=== PATIENT | male | born 1960 | race Caucasian/White ===

== ENCOUNTER 2019-02-16 05:29 | Day surgery (SDC) | payer MEDICAID, SELFPAY ==
[2019-01-24 11:22] VITALS: BMI 27.1
[2019-02-16] VITALS (9 sets, daily range): BP systolic 123–158; BP diastolic 84–107; PULSE 50–54; RESP 14–18; TEMP 36.3–36.6; O2SAT 84–99; BMI 27.8
--- NOTE | 2019-02-16 06:11 | HP.PCM_ITS ---
Problem List (1) Personal history of colonic polyps Status: Acute History of Present Illness Date of Admission: 02/16/19 The patient is a 58 year old M who presents today for screening colonoscopy. He believes that his most recent one was 9 years ago. He states that the colonos copy had prior to that he think he had some colon polyps. He has not had any bright red blood per rectum or melena. He has had some intermittent diarrhea but he attributes that to drinking alcohol. Denies any unexpected weight loss. He is also a cigarette smoker and notes some dyspnea on exertion. He denies any history of deep venous thrombosis. He has not had any recent hospitalizations. Past Medical History Past Medical History (Chronic Problems): Chronic Problems (Last Updated 01/24/19 @ 11:07 by Aaliyah Barreto) Smoker (Chronic) Personal history of skin cancer (Chronic) Actinic cheilitis (Chronic) left lower lip Actinic keratosis (Chronic) scattered actinic damage bilateral baptist areas and forehead area Neoplasm of skin of scalp (Chronic) 11 mm lesion top of scalp 1 cm cystic lesion right temporal scalp Neoplasm of skin of nose (Chronic) 6 mm lesion nasal dorsum Neoplasm of skin of forearm (Chronic) 11 mm lesion dorsal aspect distal right forearm Medical History: Medical History (Last Updated 01/24/19 @ 11:07 by Aaliyah Barreto) Back problem M53.9 Bone fracture T14.8XXA High cholesterol E78.00 Rheumatoid arthritis M06.9 Seasonal allergies J30.2 Skin cancer C44.90 High blood pressure I10 Allergies No Known Allergies Allergy (Unverified 02/16/19 05:48) Home Medications: Ambulatory Orders Medication Instructions Recorded amlodipine 5 mg tablet 5 mg PO DAILY 01/24/19 atenolol 50 mg tablet 50 mg PO DAILY 01/24/19 cyanocobalamin (vit B-12) 500 mcg 500 mcg PO DAILY 01/24/19 tablet nicotine 1 patch TRANSDERMAL Q24H 01/24/19 21mg/24hr-14mg/24hr-7mg/24hr daily transderm patch,sequential rosuvastatin 5 mg tablet 5 mg PO MOWEFR tab 01/24/19 umeclidinium 62.5 mcg/actuation 1 inh INHALATION Q24H 01/24/19 blister powder for inhalation vitamin D3 3,775 unit-folic acid 1 1 cap PO DAILY 01/24/19 mg tablet Albuterol IH (ProAir) [Proair Hfa 1 - 2 puff INHALATION Q4H PRN PRN 02/13/19 (SP)Vent Pts] Surgical History: Surgical History (Last Updated 01/24/19 @ 11:10 by Aaliyah Barreto) History of bone graft Z98.890 BROKEN FIBULA AND TIBULA - BONE GRAFT FROM HIP TO LEFT LEG Smoking Status: Former smoker Review of Systems Constitutional: Denies: Weight Change HEENT: Denies: Difficulty Swallowing Cardiovascular: Denies: Chest Pain Respiratory: Reports: Shortness of Breath Gastrointestinal: Reports: Diarrhea. Denies: Abdominal Pain Genitourinary: Denies: Dysuria Neurological: Denies: Balance problems Endocrine: Denies: Change in Body Habitus VTE Information - Inpt Only VTE Present on Admission: No Patient Problems: Active and Suspected Problems (Last Updated 01/24/19 @ 11:07 by Aaliyah Barreto) Personal history of colonic polyps (Acute) - Physical Exam General: Alert, Oriented x3, Cooperative HEENT: - - Erythematous face Oral: Moist Mucosa Neck: Supple Lungs: Clear to auscultation, - - Increased anterior posterior diameter slightly diminished respiratory excursion Cardiovascular: Regular rate, Regular Rhythm Abdomen: Bowel Sounds Present, Soft, Non Tender, Non-Distended Extremities: No Calf Tenderness Psych/Mental Status: Normal Affect Vital Signs Temp Pulse Resp BP Pulse Ox 97.3 F L 52 L 18 144/98 H 98 02/16/19 05:49 02/16/19 05:49 02/16/19 05:49 02/16/19 05:49 02/16/19 05:49 Oxygen Delivery Method Room Air Weight: 172 lb 3.121 oz Body Mass Index (BMI) 27.8 Assessment/Plan All Active Problems (Last Updated 01/24/19 @ 11:07 by Aaliyah Barreto) Personal history of colonic polyps (Acute) 58-year-old gentleman who states he has had a remote history of colon polyps. Some intermittent diarrhea possibly related to alcohol intake. He does not appear to be in acute distress. He presents via our open access program today. I have discussed the technique, benefits, risks, alternatives. He has had an opportunity to ask and have questions answered. We will proceed as noted. He states he has not had any difficulty on his previous endoscopies. Teja Munoz M.D., F.A.C.S.
--- NOTE | 2019-02-16 06:30 | COLBX_PTH ---
PATIENT: DOMINGA DOMINIQUE LOC: EN U#:[id number] AGE/SX: 58/M ROOM: RE02/16/[address]: Dr. Teja Munoz MD : 1960 BED: DIS: 02/16/2019 SPEC #: [id number] RECD: 02/16/19 08:49 STATUS: AMANDA RICHARD #: [id number] MORTEZA: 02/16/19 06:[address]: Teja Munoz DEPT: SURGICAL PATHOLOGY RECD BY: José Luis Lowry ENTERED: 02/16/19 09:41 SP TYPE: COLON BX OTHR DR: Dr. Slade Solis MD Tissues: A - Cecum, NOS B - COLON BIOPSY Procedures: Surgery Specimen Level IV HEADER OPERATION: Colonoscopy - open access (MOD) PRE-OP DIAGNOSIS: Screening colonoscopy TISSUE SUBMITTED: A - Cecal polyp biopsy, B - Random colon biopsies MICROSCOPIC DIAGNOSIS A. Cecal polyp, biopsy: Tubular adenoma. B. Colon, random biopsy: Fragments of colonic mucosa, no pathologic diagnosis. ZEESHAN:mickie 02/19/19 MICROSCOPIC DESCRIPTION Slides are reviewed. GROSS DESCRIPTION A - Received in fixative is one container labeled with the patient's name and designated cecal polyp biopsy. The specimen consists of multiple irregular fragments of light marcus soft tissue that in aggregate measure 0.8 x 0.2 x 0.1 cm. The specimen is totally submitted in one cassette. B - Received in fixative is one container labeled with the patient's name and designated random colon biopsy. The specimen consists of multiple irregular fragments of light marcus soft tissue that in aggregate measure 1 x 0.3 x 0.1 cm. The specimen is totally submitted in one cassette. / ZEESHAN:mickie 02/16/19 TC:1 CPT: 53054 x2
--- NOTE | 2019-02-16 06:47 | OP.ENDO_ITS ---
02/16/2019 Slade Solis Re : Colonoscopy procedure for Maico Woo Dear Irma This procedure was performed on Saturday, February 16, 2019. My impressions and recommendations are as follows: Impressions : - Hemorrhoids found on perianal exam. - Diverticulosis in the entire examined colon. - One 4 mm polyp in the cecum at the appendicele orifice, removed with a cold biopsy forceps. Resected and retrieved. Recommendations : - Await pathology results. - Repeat colonoscopy in 5 years for surveillance. - Telephone my office for pathology results in 1 week. - Discharge patient to home. - Resume previous diet. - Continue present medications. My findings are described in the full procedure note, which is enclosed. If I can be of further assistance, please feel free to contact me at Doctor phone number(s): Work: . Sincerely, Teja Munoz MD 02/16/2019 6:46:42 AM This report has been signed electronically.
== END 2019-02-16 07:38 | disposition home or self-care (01) ==
LOC: EN 05:30 → AC 05:31
PROVIDERS: Family Provider Family Medicine; PCP Family Medicine; Referring Provider Surgery; Visit Provider Surgery
PROC: 0DJD8ZZ Inspection of Lower Intestinal Tract, Via Natural or Artificial Opening Endoscopic (ICD-10-PCS; CPT 45378; principal; 2019-02-16 06:25)
DX: Z12.11 Encounter for screening for malignant neoplasm of colon (principal); D12.0 Benign neoplasm of cecum; K64.9 Unspecified hemorrhoids; K57.30 Diverticulosis of large intestine without perforation or abscess without bleeding; Z86.010 Personal history of colon polyps; E78.00 Pure hypercholesterolemia, unspecified; M06.9 Rheumatoid arthritis, unspecified; I10 Essential (primary) hypertension; Z85.828 Personal history of other malignant neoplasm of skin; Z79.899 Other long term (current) drug therapy; F17.210 Nicotine dependence, cigarettes, uncomplicated
CPT/HCPCS: 45380; 88305; 99152; 99153; J7120

== ENCOUNTER 2019-03-01 06:18 | Day surgery (SDC) | payer MEDICAID, SELFPAY ==
[2019-01-24 11:22] VITALS: BMI 27.1
[2019-02-16 05:49] VITALS: BMI 27.8
--- NOTE | 2019-02-28 19:42 | PCM.HP.BLA ---
History and Physical Date of Admission: 03/01/19 HISTORY OF PRESENT ILLNESS 58 year old man presents for evaluation for TBSE. He has had previous skin cancers excised in the past. He has concerns about lesions on his dorsal aspect distal right forearm, nasal dorsum, top of scalp that have increased in size over the last several months and have developed irregular borders with some scabbing. He also has scattered areas of actinic damage on his bilateral pentecostalism areas, forehead, and left lower lip. He has also noticed a cystic lesion on his right temporal scalp that he has had for several years. He denies fever. He denies trauma. He denies drainage or bleeding or recent infection. He presents at this time for further evaluation and treatment. PAST MEDICAL HISTORY Back problem Bone fracture High cholesterol Rheumatoid arthritis Skin cancer High blood pressure PAST SURGICAL HISTORY bone graft ALLERGIES No Known Allergies MEDICATIONS bisacodyl polyethylene glycol amlodipine atenolol cyanocobalamin (vit B-12) nicotine transderm patch rosuvastatin umeclidinium vitamin D3-folic acid imiquimod FAMILY HISTORY Sister - Breast cancer SOCIAL HISTORY Smoking Status: Current every day smoker counseling given: provider counseling alcohol intake: current substance use type: does not use REVIEW OF SYSTEMS General - Denies fever and weight loss. Has fatigue. Eyes - Denies cataracts and glaucoma. ENT - Denies nasal congestion. Has sore throat. Endocrine - Has excessive thirst and urination. Skin - Has had skin cancer excised in the past. Has enlarging lesions nasal dorsum, top of scalp, and dorsal aspect distal right forearm. Has a cystic lesion right temporal scalp. Has actinic damage bilateral pentecostalism areas and forehead area. Has actinic cheilitis left lower lip. Musculoskeletal - Has joint pain, joint stiffness, weakness of muscles and joints, back pain. Denies arthritis. Neuro - Denies headaches. Cardiovascular - Denies chest pain, fatigue, and shortness of breath with exertion. Psych - Denies anxiety and depression. Respiratory - Has chronic cough and shortness of breath. Has sleep apnea. Gastrointestinal - Denies nausea, vomiting, and constipation. Has diarrhea. Hematologic - Denies abnormal bruising and bleeding. Genitourinary - Denies hematuria. Has urinary frequency. PHYSICAL EXAMINATION General - Alert and Oriented. HEENT - PERRL. EOMI. Throat is clear. On his nasal dorsum is a 6 mm lesion with irregular borders. Slightly raised in configuration. Some scabbing. No ulceration. Lesion is nontender. On the top of scalp is an 11 mm lesion with scabbing and irregular borders. Slightly raised in configuration. No ulceration. Lesion is nontender. On the right temporal scalp is a cystic lesion that is mobile. Measures 1 cm. Raised in configuration. No alopecia noted. No ulceration. Lesion is nontender. Has scattered actinic damage on his bilateral pentecostalism areas and forehead area. On the left lower lip is a dry scabby lesion that measures 5 mm. Looks actinic in nature. No ulceration. Lesion is nontender. Neck - Supple and nontender. No cervical adenopathy. No suspicious lesions noted. Lungs - Clear to auscultation. Heart - Regular rate and rhythm. Abdomen - Soft and nondistended. Extremities - FROM. No axillary adenopathy. Radial pulses are palpable. On the dorsal aspect distal right forearm by the wrist is a lesion that measures 11 mm. It is a crusty lesion and is nodular. Has irregular borders. No ulceration. Lesion is nontender. Patient is right hand dominant. Neuro - CN II-XII grossly intact. Psych - Normal mood and affect. ASSESSMENT 1. 11 mm lesion dorsal aspect distal right forearm. 2. 6 mm lesion nasal dorsum. 3. 11 mm lesion top of scalp. 4. 1 cm cystic lesion right temporal scalp. 5. Scattered actinic damage bilateral pentecostalism areas and forehead area. 6. Actinic cheilitis left lower lip. 7. Personal history of skin cancer. 8. Smoker. PLAN Recommend excision lesions dorsal aspect distal right forearm by the wrist, nasal dorsum, and top of scalp and send them to Pathology for analysis to rule out carcinoma. If carcinoma is present, then further excision will be necessary with skin graft or skin flap reconstruction. The cystic lesion right temporal scalp appears stable and is asymptomatic. Can observe at this time. Appears benign. If it changes in the future, will re-evaluate for excision and send to Pathology for analysis to rule out carcinoma. He has scattered actinic damage on his bilateral pentecostalism areas and forehead area and left lower lip. Recommend the use of Aldara cream to see if healing can occur. Will apply Aldara to affected areas daily at night 5 days per week for 6 weeks. Would then re-evaluate these areas in 2 months. Will send script to his Pharmacy. Surgery can be done on an outpatient basis under general anesthesia. Patient was informed of the risks and complications of the procedure including alternatives to surgery. These were discussed with the patient personally. Patient voices understanding and wishes to proceed. Some of the risks and complications were included in a form from the [employer] [employer]. Encouraged patient to stop smoking as it may have deleterious effects on wound healing.
--- NOTE | 2019-02-28 19:51 | HP.PCM_ITS ---
History and Physical Date of Admission: 03/01/19 HISTORY OF PRESENT ILLNESS 58 year old man presents for evaluation for TBSE. He has had previous skin cancers excised in the past. He has concerns about lesions on his dorsal aspect distal right forearm, nasal dorsum, top of scalp that have increased in size over the last several months and have developed irregular borders with some scabbing. He also has scattered areas of actinic damage on his bilateral evangelical areas, forehead, and left lower lip. He has also noticed a cystic lesion on his right temporal scalp that he has had for several years. He denies fever. He denies trauma. He denies drainage or bleeding or recent infection. He presents at this time for further evaluation and treatment. PAST MEDICAL HISTORY Back problem Bone fracture High cholesterol Rheumatoid arthritis Skin cancer High blood pressure PAST SURGICAL HISTORY bone graft ALLERGIES No Known Allergies MEDICATIONS bisacodyl polyethylene glycol amlodipine atenolol cyanocobalamin (vit B-12) nicotine transderm patch rosuvastatin umeclidinium vitamin D3-folic acid imiquimod FAMILY HISTORY Sister - Breast cancer SOCIAL HISTORY Smoking Status: Current every day smoker counseling given: provider counseling alcohol intake: current substance use type: does not use REVIEW OF SYSTEMS General - Denies fever and weight loss. Has fatigue. Eyes - Denies cataracts and glaucoma. ENT - Denies nasal congestion. Has sore throat. Endocrine - Has excessive thirst and urination. Skin - Has had skin cancer excised in the past. Has enlarging lesions nasal dorsum, top of scalp, and dorsal aspect distal right forearm. Has a cystic lesion right temporal scalp. Has actinic damage bilateral evangelical areas and forehead area. Has actinic cheilitis left lower lip. Musculoskeletal - Has joint pain, joint stiffness, weakness of muscles and joints, back pain. Denies arthritis. Neuro - Denies headaches. Cardiovascular - Denies chest pain, fatigue, and shortness of breath with exertion. Psych - Denies anxiety and depression. Respiratory - Has chronic cough and shortness of breath. Has sleep apnea. Gastrointestinal - Denies nausea, vomiting, and constipation. Has diarrhea. Hematologic - Denies abnormal bruising and bleeding. Genitourinary - Denies hematuria. Has urinary frequency. PHYSICAL EXAMINATION General - Alert and Oriented. HEENT - PERRL. EOMI. Throat is clear. On his nasal dorsum is a 6 mm lesion with irregular borders. Slightly raised in configuration. Some scabbing. No ulceration. Lesion is nontender. On the top of scalp is an 11 mm lesion with scabbing and irregular borders. Slightly raised in configuration. No ulceration. Lesion is nontender. On the right temporal scalp is a cystic lesion that is mobile. Measures 1 cm. Raised in configuration. No alopecia noted. No ulceration. Lesion is nontender. Has scattered actinic damage on his bilateral evangelical areas and forehead area. On the left lower lip is a dry scabby lesion that measures 5 mm. Looks actinic in nature. No ulceration. Lesion is nontender. Neck - Supple and nontender. No cervical adenopathy. No suspicious lesions noted. Lungs - Clear to auscultation. Heart - Regular rate and rhythm. Abdomen - Soft and nondistended. Extremities - FROM. No axillary adenopathy. Radial pulses are palpable. On the dorsal aspect distal right forearm by the wrist is a lesion that measures 11 mm. It is a crusty lesion and is nodular. Has irregular borders. No ulceration. Lesion is nontender. Patient is right hand dominant. Neuro - CN II-XII grossly intact. Psych - Normal mood and affect. ASSESSMENT 1. 11 mm lesion dorsal aspect distal right forearm. 2. 6 mm lesion nasal dorsum. 3. 11 mm lesion top of scalp. 4. 1 cm cystic lesion right temporal scalp. 5. Scattered actinic damage bilateral evangelical areas and forehead area. 6. Actinic cheilitis left lower lip. 7. Personal history of skin cancer. 8. Smoker. PLAN Recommend excision lesions dorsal aspect distal right forearm by the wrist, nasal dorsum, and top of scalp and send them to Pathology for analysis to rule out carcinoma. If carcinoma is present, then further excision will be necessary with skin graft or skin flap reconstruction. The cystic lesion right temporal scalp appears stable and is asymptomatic. Can observe at this time. Appears benign. If it changes in the future, will re- evaluate for excision and send to Pathology for analysis to rule out carcinoma. He has scattered actinic damage on his bilateral evangelical areas and forehead area and left lower lip. Recommend the use of Aldara cream to see if healing can occur. Will apply Aldara to affected areas daily at night 5 days per week for 6 weeks. Would then re-evaluate these areas in 2 months. Will send script to his Pharmacy. Surgery can be done on an outpatient basis under general anesthesia. Patient was informed of the risks and complications of the procedure including alternatives to surgery. These were discussed with the patient personally. Patient voices understanding and wishes to proceed. Some of the risks and complications were included in a form from the [employer]. Encouraged patient to stop smoking as it may have deleterious effects on wound healing.
--- NOTE | 2019-03-01 | LES_PTH ---
PATIENT: DOMINGA DOMINIQUE LOC: [facility] [place] U#:[id number] AGE/SX: 58/M ROOM: RE03/01/[address]: Dr. Jhoan Burkett MD : 1960 BED: DIS: 03/01/2019 SPEC #: [id number] RECD: 03/01/19 08:43 STATUS: AMANDA RENell #: [id number] MORTEZA: 03/01/19 00:[address]: Jhoan Burkett DEPT: SURGICAL PATHOLOGY RECD BY: Violeta Thakur ENTERED: 03/01/19 09:47 SP TYPE: Lesion OTHR DR: Dr. Slade Solis MD Tissues: A - Skin of forearm, NOS B - Skin of nose, NOS C - Skin of scalp, NOS Procedures: Frozen Section (charge) Surgery Specimen Level IV HEADER OPERATION: Excision lesions, distal dorsal right forearm, nasal dorsum, top of scalp PRE-OP DIAGNOSIS: 11 mm lesion dorsal aspect distal right forearm; 6 mm lesion nasal dorsum; 1 mm lesion top of scalp TISSUE SUBMITTED: A - Lesion right forearm, B - Lesion nasal dorsum, C - Lesion top of scalp FROZEN SECTION DIAGNOSIS A. Skin lesion, right forearm, shave biopsy: Actinic change and solar elastosis. B. Nasal dorsum skin lesion, shave biopsy: Actinic change and solar elastosis. C. Skin lesion, top of scalp, shave biopsy: Actinic change and solar elastosis. AM:mickie 03/01/19 MICROSCOPIC DIAGNOSIS A. Skin lesion of right forearm, shave biopsy: Actinic change and solar elastosis. B. Skin lesion, nasal dorsum, shave biopsy: Actinic change and solar elastosis. C. Skin lesion, top of scalp, shave biopsy: Actinic change and solar elastosis. Demodex folliculorum. AM:mickie 03/02/19 MICROSCOPIC DESCRIPTION Slides are reviewed. GROSS DESCRIPTION A - Received fresh for frozen section consultation labeled with the patient's name is a specimen designated lesion right forearm. The specimen consists of a shave biopsy of skin measuring 1.5 cm in diameter and <0.1 cm in thickness. The specimen is inked, bisected and totally submitted for frozen section consultation. B - Received fresh for frozen section consultation labeled with the patient's name is a specimen designated lesion nasal dorsum. The specimen consists of a shave biopsy of skin measuring 0.5 x 0.3 x <0.1 cm. The specimen is inked and totally submitted in one block for frozen section consultation. C - Received fresh for frozen section consultation labeled with the patient's name is a specimen designated lesion top of scalp. The specimen consists of a shave biopsy of skin measuring 1.5 x 1 x 0.1 cm. The specimen is inked, bisected and totally submitted in one block for frozen section consultation. / AM:mickie 03/01/19 TC:5 CPT: 40152 x3
[2019-03-01 06:49] VITALS: BP 148/89; PULSE 48; RESP 16; TEMP 36.4; O2SAT 97; BMI 28.3
[2019-03-01] MEDS: Silver Nitrate (BKC) 1 EACH (09:05)
[2019-03-01] MEDS: Mupirocin Ointment 22gm Tube 1 APPLIC (09:05)
--- NOTE | 2019-03-01 09:10 | PCM.OPRPT ---
Report of Operation Date of Procedure: 03/01/19 Pre-Operative Diagnosis: 1. 11 mm lesion dorsal aspect distal right forearm. 2. 6 mm lesion nasal dorsum. 3. 11 mm lesion top of scalp. 4. Personal history of skin cancer. 5. Smoker. Post-Operative Diagnosis: 1. 11 mm actinic keratosis dorsal aspect distal right forearm. 2. 6 mm actinic keratosis nasal dorsum. 3. 11 mm actinic keratosis top of scalp. 4. Personal history of skin cancer. 5. Smoker. Surgery/Procedure Performed:: 1. Intradermal excision 11 mm actinic keratosis dorsal aspect distal right forearm. 2. Intradermal excision 6 mm actinic keratosis nasal dorsum. 3. Intradermal excision 11 mm actinic keratosis top of scalp. Description of Surgical Findings:: 58 year old man presents for evaluation for TBSE. He has had previous skin cancers excised in the past. He has concerns about lesions on his dorsal aspect distal right forearm, nasal dorsum, top of scalp that have increased in size over the last several months and have developed irregular borders with some scabbing. He also has scattered areas of actinic damage on his bilateral denominational areas, forehead, and left lower lip. He has also noticed a cystic lesion on his right temporal scalp that he has had for several years. He denies fever. He denies trauma. He denies drainage or bleeding or recent infection. Patient was informed of the risks and complications of the procedure including alternatives to surgery. These were discussed with the patient personally. Patient voices understanding and wishes to proceed. Some of the risks and complications were included in a form from the [employer]. Encouraged patient to stop smoking as it may have deleterious effects on wound healing. Frozen section dorsal aspect distal right forearm - actinic keratosis and no carcinoma seen. Frozen section nasal dorsum - actinic keratosis and no carcinoma seen. Frozen section top of scalp - actinic keratosis and no carcinoma seen. commissary agent: Lena Navarro. Type of Anesthesia:: General Specimen's removed: 1. Lesion dorsal aspect distal right forearm to Pathology as a frozen section. 2. Lesion nasal dorsum to Pathology as a frozen section. 3. Lesion top of scalp to Pathology as a frozen section. Drains: None. Estimated Blood Loss (mL): 2 ml. Description of Procedure: Patient was taken to OR in supine position and was placed under general anesthesia. The face and scalp and neck and right forearm areas were prepped and draped in the usual fashion. SCD's were placed for DVT prophylaxis. Perioperative antibiotics were given intravenously. Using xylocaine with epinephrine, the lesions nasal dorsum, top of scalp, and dorsal aspect distal right forearm were infiltrated. After waiting 5 minutes for the anesthetic to take effect, I excised these three lesions (nasal dorsum, top of scalp, and dorsal aspect distal right forearm) in an intradermal fashion. They were sent separately to Pathology as a frozen section. Frozen section showed all three lesions (nasal dorsum, top of scalp, and dorsal aspect distal right forearm) were actinic keratoses and no carcinoma seen. No further surgery will be done today. It was discussed with the patient preoperatively that if actinic keratoses were present he would want to treat the lesions further with Aldara. So hemostasis was obtained with silver nitrate chemical cauterization. Antibiotic ointment was applied followed by band-aid dressing. Patient tolerated the procedure well and was sent to PACU in satisfactory condition. Patient will be sent home on antibiotics and pain medication. Patient will followup in a week for a wound check and for discussion of the pathology report. Once the silver nitrate chemical cauterization scabs have come off, we will start the Aldara cream. It is to be applied daily at night 5 days per week for 6 weeks then be re-evaluated in 2 months. Grafts/Implants Used: None. - Complications None. - Admit VTE Documentation VTE Present on Admission: No VTE Mechan Device Prophylaxis: SCD's VTE Pharm Prophylaxis ordered?: No Code Visit Surgery Charges CPT - 09304 ICD-10 - L57.0, Z85.828, F17.200 14556 L57.0, Z85.828, F17.200 83042 L57.0, Z85.828, F17.200
--- NOTE | 2019-03-01 09:13 | OP.PCM_ITS ---
Report of Operation Date of Procedure: 03/01/19 Pre-Operative Diagnosis: 1. 11 mm lesion dorsal aspect distal right forearm. 2. 6 mm lesion nasal dorsum. 3. 11 mm lesion top of scalp. 4. Personal history of skin cancer. 5. Smoker. Post-Operative Diagnosis: 1. 11 mm actinic keratosis dorsal aspect distal right forearm. 2. 6 mm actinic keratosis nasal dorsum. 3. 11 mm actinic keratosis top of scalp. 4. Personal history of skin cancer. 5. Smoker. Surgery/Procedure Performed:: 1. Intradermal excision 11 mm actinic keratosis dorsal aspect distal right forearm. 2. Intradermal excision 6 mm actinic keratosis nasal dorsum. 3. Intradermal excision 11 mm actinic keratosis top of scalp. Description of Surgical Findings:: 58 year old man presents for evaluation for TBSE. He has had previous skin cancers excised in the past. He has concerns about lesions on his dorsal aspect distal right forearm, nasal dorsum, top of scalp that have increased in size over the last several months and have developed irregular borders with some scabbing. He also has scattered areas of actinic damage on his bilateral pentecostal areas, forehead, and left lower lip. He has also noticed a cystic lesion on his right temporal scalp that he has had for several years. He denies fever. He denies trauma. He denies drainage or bleeding or recent infection. Patient was informed of the risks and complications of the procedure including alternatives to surgery. These were discussed with the patient personally. Patient voices understanding and wishes to proceed. Some of the risks and complications were included in a form from the [employer]. Encouraged patient to stop smoking as it may have deleterious effects on wound healing. Frozen section dorsal aspect distal right forearm - actinic keratosis and no carcinoma seen. Frozen section nasal dorsum - actinic keratosis and no carcinoma seen. Frozen section top of scalp - actinic keratosis and no carcinoma seen. 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 Type of Anesthesia:: General Specimen's removed: 1. Lesion dorsal aspect distal right forearm to Pathology as a frozen section. 2. Lesion nasal dorsum to Pathology as a frozen section. 3. Lesion top of scalp to Pathology as a frozen section. Drains: None. Estimated Blood Loss (mL): 2 ml. Description of Procedure: Patient was taken to OR in supine position and was placed under general anesthesia. The face and scalp and neck and right forearm areas were prepped and draped in the usual fashion. SCD's were placed for DVT prophylaxis. Perioperative antibiotics were given intravenously. Using xylocaine with epinephrine, the lesions nasal dorsum, top of scalp, and dorsal aspect distal right forearm were infiltrated. After waiting 5 minutes for the anesthetic to take effect, I excised these three lesions (nasal dorsum, top of scalp, and dorsal aspect distal right forearm) in an intradermal fashion. They were sent separately to Pathology as a frozen section. Frozen section showed all three lesions (nasal dorsum, top of scalp, and dorsal aspect distal right forearm) were actinic keratoses and no carcinoma seen. No further surgery will be done today. It was discussed with the patient preoperatively that if actinic keratoses were present he would want to treat the lesions further with Aldara. So hemostasis was obtained with silver nitrate chemical cauterization. Antibiotic ointment was applied followed by band-aid dressing. Patient tolerated the procedure well and was sent to PACU in satisfactory condition. Patient will be sent home on antibiotics and pain medication. Patient will followup in a week for a wound check and for discussion of the pathology report. Once the silver nitrate chemical cauterization scabs have come off, we will start the Aldara cream. It is to be applied daily at night 5 days per week for 6 weeks then be re-evaluated in 2 months. Grafts/Implants Used: None. - Complications None. - Admit VTE Documentation VTE Present on Admission: No VTE Mechan Device Prophylaxis: SCD's VTE Pharm Prophylaxis ordered?: No Code Visit Surgery Charges CPT - 66171 ICD-10 - L57.0, Z85.828, F17.200 44043 L57.0, Z85.828, F17.200 82951 L57.0, Z85.828, F17.200
[2019-03-01 09:20] VITALS: BP 107/69; BP 149/89; PULSE 57; RESP 16; TEMP 36.1; O2SAT 92
--- NOTE | 2019-03-01 09:24 | DCINST_ITS ---
You will use the following diet at home:: No restrictions Discharge Activity: Return to Normal Activity May shower in (days): 2 May resume sexual activity in: No Restrictions Ice area for (Minutes): 5 - as needed for swelling. Weight Bearing Status: Weight bearing as tolerated Call your doctor if your incision/area has: Continuous Slow Oozing, Sudden Increased Bleeding, Increased Pain/ Swelling, Increased Redness, Foul Smelling Discharge, Swelling at the incision site Call your doctor if you observe: Fever of 101 or Higher, Coldness, Increased Pain, Shortness of breath, Chest pain, Calf discomfort, Uncontrolled pain Suture Line Care: - - apply antibiotic ointment to wounds daily. Cleanse incision/area with: - - may get wounds wet in the shower in two days. Allergies/Adverse Reactions: Allergies No Known Allergies Allergy (Unverified 02/22/19 10:05) Medications to take at Discharge amlodipine 5 mg tablet 5 mg PO QHS 01/24/19 atenolol 50 mg tablet 50 mg PO QHS 01/24/19 cyanocobalamin (vit B-12) 500 mcg tablet 500 mcg PO DAILY 01/24/19 nicotine 21mg/24hr-14mg/24hr-7mg/24hr daily transderm patch,sequential 1 patch TRANSDERMAL Q24H 01/24/19 rosuvastatin 5 mg tablet 5 mg PO MOWEFR tab 01/24/19 Albuterol IH (ProAir) [Proair Hfa] 1 - 2 puff INHALATION Q4H PRN PRN 02/13/19 Cholecalciferol (Vitamin D3) [Vitamin D3] 4,000 unit PO DAILY 02/22/19 Tiotropium Br/Olodaterol HCl [Stiolto Respimat Inhal [place]] 2 puff IH DAILY 02/22/19 Clindamycin HCl [Cleocin] 300 mg PO TID #9 cap 03/01/19 Oxycodone HCl/Acetaminophen [Percocet 5/325] 1 tab PO BID PRN PRN 5 Days #10 tab 03/01/19 The following prescriptions were given: Oxycodone HCl/Acetaminophen [Percocet 5/325] 1 tab PO BID PRN PRN 5 Days #10 tab PRN Reason: Pain Clindamycin HCl [Cleocin] 300 mg PO TID #9 cap Primary Care Physician: Slade Solis MD [Primary Care Provider] - Test Results: Test results from this visit will be discussed in further detail at your follow- up appointment, if applicable. Please Follow Up With: Jhoan Burkett MD When: one week. call [phone] for appt. Proposed Discharge Date: 03/01/19
[2019-03-01 09:30] VITALS: BP 149/89; BP 99/68; PULSE 56; RESP 16; O2SAT 94
[2019-03-01 09:45] VITALS: BP 102/78; BP 149/89; PULSE 55; RESP 16; TEMP 36.2; O2SAT 93
[2019-03-01 10:30] VITALS: BP 102/67; BP 149/89; PULSE 51; RESP 18; TEMP 36.6; O2SAT 93
== END 2019-03-01 10:35 | disposition home or self-care (01) ==
LOC: SDC 06:19 → AC 06:19
PROVIDERS: Family Provider Family Medicine; PCP Family Medicine; Referring Provider Surgery; Visit Provider Surgery
PROC: (CPT 11402; principal; 2019-03-01 07:45)
DX: L57.0 Actinic keratosis (principal); B88.0 Other acariasis; Z85.828 Personal history of other malignant neoplasm of skin; M06.9 Rheumatoid arthritis, unspecified; E78.00 Pure hypercholesterolemia, unspecified; K21.9 Gastro-esophageal reflux disease without esophagitis; I10 Essential (primary) hypertension; Z79.899 Other long term (current) drug therapy; F17.200 Nicotine dependence, unspecified, uncomplicated
CPT/HCPCS: 00300; 11402; 11422; 11441; 88305; 88331; J7120; J2405

== ENCOUNTER → 2019-05-17 | Outpatient (CLI) | payer MEDICAID, SELFPAY ==
[2019-03-21 08:23] VITALS: BMI 28.3
--- NOTE | 2019-05-17 08:18 | RAD_ITS ---
STUDY: AIR-CONTRAST UPPER GI SERIES. REASON FOR EXAM: Male, 59 years old. Left-sided abdominal pain and possible reflux. FLUOROSCOPY TIME (if supplied): (0:47) minutes/seconds TECHNIQUE: The patient ingested barium. Multiple images of the esophagus, stomach and duodenum were obtained. COMPARISON: None. FINDINGS: The esophagus is unremarkable. There is no evidence of obstruction. No evidence of gastroesophageal reflux. The stomach and duodenum are unremarkable. No evidence of ulceration. No mass lesion is seen. RAD/Upper GI Series Only IMPRESSION: Unremarkable air contrast upper GI series. Electronically Signed: Henry Dan, at 15:10 EDT , Service support ,
== END | disposition home or self-care (01) ==
LOC: RAD 08:16
PROVIDERS: Family Provider Family Medicine; PCP Family Medicine; Referring Provider Family Medicine; Visit Provider Family Medicine
DX: R12 Heartburn (principal)
CPT/HCPCS: 74246

== ENCOUNTER → 2019-06-20 07:50 | Outpatient (CLI) | payer MEDICAID, SELFPAY ==
[2019-06-01 09:51] VITALS: BMI 29.3
--- NOTE | 2019-06-20 07:52 | ECHOD_ITS ---
Reason For Study: Dyspnea/SOB Procedure This was a 2D Doppler, Color Flow transthoracic echocardiogram. Exam performed in department. Left Ventricle Normal size and thickness. The estimated ejection fraction is 65 %. Stage 1 diastolic dysfunction. No regional wall motion abnormalities noted. Right Ventricle Normal size and thickness. Normal systolic function. Atria Normal left atrium. Normal right atrium. Normal atrial septum. Mitral Valve The mitral valve is structurally normal. No prolapse or stenosis seen. Tricuspid Valve Normal tricuspid valve. Trivial tricuspid valve insufficiency. Right ventricular systolic pressure estimated to be 34 mmHg. Aortic Valve Normal aortic valve. Trisinus/trileaflet aortic valve. Pulmonic Valve Normal pulmonic valve. Great Vessels Normal aortic root. Normal arch. Normal inferior vena cava. Inferior vena cava collapse with sniff. Pericardium/Pleural No pericardial effusion. MMode/2D Measurements & Calculations LVIDd: 5.0 cm IVSd: 1.0 cm Ao root diam: 3.2 cm LVIDs: 3.2 cm LVPWd: 0.73 cm RVDd: 4.1 cm FS: 36.7 % LAV(MOD-bp): 33.0 ml LVAd ap4: 26.6 cm2 SV(MOD-sp4): 48.4 ml LAV(MOD-bp) Indexed: 17.2 ml/m2 EDV(MOD-sp4): 78.6 ml LAV(MOD-sp2): 38.2 ml EDV(sp4-el): 80.2 ml LAV(MOD-sp4): 28.6 ml LVAs ap4: 14.7 cm2 ESV(MOD-sp4): 30.2 ml ESV(sp4-el): 29.7 ml EF(MOD-sp4): 61.6 % EF(sp4-el): 63.0 % SV(sp4-el): 50.6 ml LA A4 area: 13.5 cm2 LA dimension(2D): 4.0 cm RA A4 area: 13.6 cm2 Doppler Measurements & Calculations MV E max dimas: 49.8 cm/sec Lat Peak E' Dimas: 9.6 cm/sec Med Peak E' Dimas: 6.4 cm/sec MV A max dimas: 64.7 cm/sec E/E' lat: 5.2 E/E' med: 7.8 MV E/A: 0.77 Ao V2 max: 122.9 cm/sec LV V1 max: 98.7 cm/sec PA V2 max: 67.9 cm/sec Ao max P.0 mmHg LV V1 max P.9 mmHg Ao V2 mean: 85.2 cm/sec Ao mean P.2 mmHg Ao V2 VTI: 27.5 cm TR max dimas: 267.2 cm/sec TR max P.6 mmHg Interpretation Summary The estimated ejection fraction is 65 %. Stage 1 diastolic dysfunction. Trivial tricuspid valve insufficiency. Right ventricular systolic pressure estimated to be 34 mmHg. There is no comparison study available. Ordering Physician: Sammy Solano Referring Physician: Slade Solis Performed By: Soni Becerril RDCS, RVT
== END ==
PROVIDERS: Family Provider Family Medicine; PCP Family Medicine; Referring Provider Internal Medicine Cardiovascular Disease; Visit Provider Internal Medicine Cardiovascular Disease
DX: R06.09 Other forms of dyspnea (principal)
CPT/HCPCS: 93306

== ENCOUNTER → 2019-06-22 09:25 | Outpatient (CLI) | payer MEDICAID, SELFPAY ==
[2019-06-01 09:51] VITALS: BMI 29.3
--- NOTE | 2019-06-22 09:26 | STEWCON_ITS ---
Reason For Study: DYSPNEA/SOB Stress Results Protocol: [facility] Protocol WITH DEFINITY Maximum Predicted HR: 159 bpm Target HR: 135 bpm % Maximum Predicted HR: 87 % DurationHeart Rate Stage (mm:ss) (bpm) BP Comment BASELINE 66 140/102 STAGE 1 3:00 118 180/108 STAGE 2 1:04 139 / RECOVERY 73 150/905 CC DEFINITY FOR TEST Stress Duration: 4:04 mm:ss Maximum Stress HR: 139 bpm Baseline Echocardiogram Findings The estimated ejection fraction is 65 %. Stress Echo Wall motion Data Resting WM Intermediate WM Stress WM Resting Wall Motion Wall Motion Stress No regional wall motion Mid-Anterior : Mildly abnormalities noted. hypokinetic. Mid-Lateral : Mildly hypokinetic. Mid-anteroseptal : Mildly hypokinetic. EKG Data The baseline ECG displays normal sinus rhythm. The patient exercised according to the regular [facility] protocol for a total duration of 4:05. The maximum heart rate attained was 139 beats per minute. This was 87% of maximum predicted heart rate. The patient exercised into stage 2 of the [facility] protocol. During stress, there were no ST or T wave changes noted to suggest ischemia. No clinical angina was noted. Interpretation Summary The estimated ejection fraction is 65 %. Mid-Anterior : Mildly hypokinetic Mid-Lateral : Mildly hypokinetic Mid-anteroseptal : Mildly hypokinetic Abnormal, adequate, treadmill echocardiogram. Positive for ischemia by echocardiographic criteria. Patient appeared to develop mid anteroseptal and lateral hypokinesis at peak exercise. Hypertensive blood pressure response to exercise. Below average exercise capacity for age. Rare PVCs noted. Test terminated due to the attainment target heart rate and dyspnea which may be an anginal equivalent. Markedly reduced exercise capacity over stress test performed in 2004 at which time he went 13.4 METS. Decreased sensitivity due to poor echo windows poor echo windows requiring Definity agent make image interpretation problematic. Final LVEF of 60%. No complications. The study was technically difficult. Contrast injection was performed. Ordering Physician: Sammy Solano Referring Physician: Sammy Solano Performed By: Karmen Shultz, SHIVA, RVT
== END ==
PROVIDERS: Family Provider Family Medicine; PCP Family Medicine; Referring Provider Internal Medicine Cardiovascular Disease; Visit Provider Internal Medicine Cardiovascular Disease
DX: R06.09 Other forms of dyspnea (principal); E78.5 Hyperlipidemia, unspecified; R07.89 Other chest pain; Z87.891 Personal history of nicotine dependence
CPT/HCPCS: 93017; 93350; Q9957; A4216; C8928

== ENCOUNTER → 2019-07-03 09:54 | Outpatient (CLI) | payer MEDICAID, SELFPAY ==
[2019-06-01 09:51] VITALS: BMI 29.3
[2019-07-02 13:41] VITALS: BMI 29.3
--- NOTE | 2019-07-03 17:24 | PFT ---
INTRODUCTION: The patient is a 59-year-old male that presents for pulmonary function studies secondary to a diagnosis of dyspnea. Respiratory therapy reports good patient effort. Bronchodilators were used during testing. INTERPRETATION: Forced expiration spirometry demonstrates the presence of a moderately severe large airways obstructive ventilatory defect. There was no significant response to aerosolized bronchodilators, based upon strict ATS criteria. Spirograms are of fair quality and do not plateau indicating slow emptying of the lungs. Body plethysmography was performed and reveals an elevated RV to 130% of predicted, indicative of underlying air trapping. Diffusing capacity by single breath CO is reduced at 71% of predicted. IMPRESSION: Irreversible moderately severe large airways obstructive ventilatory defect with associated air trapping and mild reduction in diffusing capacity.
== END ==
PROVIDERS: Family Provider Family Medicine; PCP Family Medicine; Referring Provider Internal Medicine Cardiovascular Disease; Visit Provider Internal Medicine Cardiovascular Disease
DX: R06.09 Other forms of dyspnea (principal); Z87.891 Personal history of nicotine dependence
CPT/HCPCS: 94060; 94726; 94729

== ENCOUNTER 2019-07-04 07:52 | Day surgery (SDC) | payer MEDICAID, SELFPAY ==
[2019-06-01 09:51] VITALS: BMI 29.3
--- NOTE | 2019-06-26 09:03 | RAD_ITS ---
STUDY: X-RAY CHEST REASON FOR EXAM: Male, 59 years old. Chest pain and COPD TECHNIQUE: PA and lateral COMPARISON: None. FINDINGS: Chronic interstitial and emphysematous changes are noted. There is no demonstrated pleural abnormality. Normal size heart. Normal mediastinum and horacio. Normal visualized pulmonary arteries. Normal visualized aortic arch and descending thoracic aorta. Dorsal spine demonstrates scoliosis and degenerative change Normal visualized ribs, clavicles, and shoulders. There is no demonstrated abnormality of the visualized soft tissue structures of the upper abdomen. RAD/Chest PA and Lateral IMPRESSION: Chronic changes. No acute cardiopulmonary pathology Electronically Signed: Néstor Gary MD at 22:52 EDT , Service support ,
[2019-06-26 10:42] LABS: Hematocrit 46.6 % (40-54); Mean Corp Hgb Conc 32.2 g/dL (32-36); Mean Corpuscular Hgb 29.8 pg (27.0-32.0); Mean Corpuscular Volume 92.5 fL (80-94); Mean Platelet Vol. 9.6 fl (6.2-12.0); Platelet Count 269 K/mm3 (150-450); RBC Distribution Width CV 12.6 % (11.6-14.6); RBC Distribution Width SD 42.4 fl (35.1-43.9); Red Blood Count 5.04 M/mm3 (4.6-6.2); White Blood Count 5.4 K/mm3 (4.4-11.0)
[2019-06-26 10:51] LABS: Prothrombin Time (Protime)PT. 13.1 SECONDS (11.7-14.9)
[2019-06-26 10:52] LABS: Partial Thromboplast Time 30.9 Seconds (24.1-36.2)
[2019-06-26 11:04] LABS: Anion Gap 7 (5-15); BUN 14 mg/dL (7-18); BUN/Creat Ratio 14.4 RATIO (10-20); Calcium,Total 9.3 mg/dL (8.5-10.1); Chloride 104 mmol/L (98-107); Creatinine, Serum 0.97 mg/dL (0.70-1.30); EST Glomerular Filtration Rate 84 mL/min (>60); Est Glom Filt Rate - Afr Amer 101 mL/min (>60); Glucose 88 mg/dL (74-106); Potassium 4.6 mmol/L (3.5-5.1); Sodium Level 141 mmol/L (136-145)
[2019-07-02 13:41] VITALS: BMI 29.3
--- NOTE | 2019-07-04 08:39 | HP.PCM_ITS ---
History and Physical Date of Admission: 07/04/19 [facility] History of Present Illness Details: Mr. Woo is a very pleasant 59-year-old nondiabetic gentleman, recently quit smoking after a 1.5 pack/day for the past 35 years, drinks about 6-8 beers per day for the past 35 years, and no illicit drug use. He has no known history of coronary disease and no previous catheterization. In addition he has a history of hypertension, hypercholesterolemia, no TIA or CVA in the past. The patient's symptoms started about 4 years ago with shortness of breath and dyspnea on exertion which has been worsening over the last several years. He has no associated exertional chest pressure or chest pain, but does admit to dyspnea on exertion after only 2 blocks and worse with hot humid days. In addition he complains of snoring, wakes up tired, has daytime somnolence but is never been evaluated with a sleep study. He has never had PFTs to his knowledge . In addition, the patient is complained of severe cramping of his bilateral upper and lower extremities over the last several years. He did have a statin holiday for about 2 weeks time with minimal improvement of his cramping. His cramps are so bad that when he goes to lift something up his arms freeze in place, and he is unable to release the item. He also has a history of significant back i ssues. Patient underwent a stress test on 04/23/2005 at [facility] at which time he went 13.4 METS, and had less than [address] segment changes which did not reach criteria for ischemia. Nuclear images were negative as well. He continues with shortness of breath on extreme exertion. He does acknowledge lightheaded and dizziness. He states feeling tired all the time. He states intermittent palpitations. He acknowledges lower extremity muscle cramps at times. He denies chest, arm, jaw, or neck discomfort. His exercise tolerance is stable. He denies symptoms of near syncope, or syncopal episodes. He denies edema or claudication issues. He denies orthopnea, PND, fever, chills, blood in urine, blood in stool, myalgia, or unexplainable fatigue. 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 Is patient in pain?: Yes Allergies No Known Allergies Allergy (Verified 06/01/19 10:03) Medications amlodipine 5 mg tablet 5 mg PO QHS 01/24/19 [History Confirmed 06/01/19] atenolol 50 mg tablet 50 mg PO QHS 01/24/19 [History Confirmed 06/01/19] cyanocobalamin (vit B-12) 500 mcg tablet 500 mcg PO DAILY 01/24/19 [History C onfirmed 06/01/19] Albuterol IH (ProAir) [Proair Hfa] 1 - 2 puff INHALATION Q4H PRN PRN 02/13/19 [History Confirmed 06/01/19] Cholecalciferol (Vitamin D3) [Vitamin D3] 4,000 unit PO DAILY 02/22/19 [History Confirmed 06/01/19] Tiotropium Br/Olodaterol HCl [Stiolto Respimat Inhal [place]] 2 puff IH DAILY 02/22/19 [History Confirmed 06/01/19] omeprazole 20 mg capsule,delayed release 20 mg PO DAILY 05/29/19 [History Confirmed 06/01/19] aspirin 81 mg tablet,delayed release 81 mg PO DAILY #30 tab 06/01/19 [Rx Confirmed 06/01/19] rosuvastatin 5 mg tablet 5 mg PO DAILY tab 06/01/19 [History Confirmed 0 06/01/19] Clopidogrel (Plavix) 75 mg p.o. daily PFSH Medical History Dyspnea on exertion (Acute) Hypertension (Chronic) Hyperlipidemia (Chronic) History of tobacco use (Chronic) GERD (gastroesophageal reflux disease) (Chronic) Back problem (Acute) Bone fracture (Acute) Rheumatoid arthritis (Acute) Seasonal allergies (Acute) Skin cancer (Acute) Surgical History History of bone graft (Acute) Family History (Updated 05/29/19 @ 10:14 by Leonela Emanuel) Sister Breast cancer Mother Hyperlipidemia Diabetes Social History (Updated 06/01/19 @ 10:42 by Sammy Solano MD) Smoking Status: Former smoker counseling given: provider counseling alcohol intake: current substance use type: does not use ROS Const Const: Positive for fatigue and other (Quit smoking 5 mos ago, PFT improved, still VINCENT); negative for weakness, body ache, fever(s), headache(s), chills, frequent falls, night sweats, daytime sleepiness, difficulty sleeping, excessive sweating, weight gain, weight loss, increased appetite, poor appetite or anorexia Eyes Eyes: Negative for blind spots, loss of peripheral vision, transient loss of vision, blurry vision, change in vision, double vision, floaters, tunnel vision or other ENT ENT: Negative for headache(s), dizziness, hearing loss, tinnitus, Nosebleed/epistaxis, balance problems, post nasal drip, lip swelling, tongue swelling, bleeding gums, hoarseness, neck pain, dry mouth or other Cardio Chest Pain: Negative Palpitations: Yes (Once in awhile feels this) feels like its: fast, skipping Edema: None Muscle aches with walking: Bilateral (Severe lower leg cramps all the time, former smoker) Resp Respiratory: Positive for SOB with activity, snoring and other (excessive daytime somnolence. Tired all the time.); negative for SOB at rest, cough, SOB orthopnea\SOB lying down, Coughing up blood/hemoptysis, chest congestion, pain on inspiration, stridor, wheezing, crackles or paroxysmal nocturnal dyspnea GI GI: Negative nausea, vomiting, heartburn, constipation, belching, bloating, cramping, vomiting blood/hematemesis, bright, red blood in stools, black,tarry stools, loose stools, Difficulty Swallowing or other : Negative for hematuria, frequent nighttime urination/ nocturia, erectile dysfunction or abnormal vaginal bleeding Musc Musc: Positive for joint pain (general arthritis); negative for muscle aches/ myalgia, muscle weakness or balance problems Skin Skin: Negative redness, non-healing lesions, rash, unusual bruising, skin ulcer, wounds, jaundice or other Neuro Neuro: Negative for dizziness, lightheadedness, near syncope, syncope, orthostatic symptoms, frequent falls, headache(s), weakness, confusion, memory loss, restless legs, blurry vision, double vision, vertigo, seizures, lack of coordination or other [place] Hematologic/Lymphatic: Negative for easy bleeding, easy bruising, enlarged lymph nodes or other Endo Endo: Positive for fatigue; negative for cold intolerance, heat intolerance, excessive sweating, flushing, increased thirst/drinking, increased hunger, hair loss, hair growth or other Psych Psych: Negative for anxiety, depression, thoughts of harming anyone, thoughts of harming yourself, visual hallucinations, panic attacks or audible hallucinations Allergy Allergy/Immunology: Negative for throat swelling, Negative for tongue swelling, Negative for hives, Negative for rash, Negative for lip swelling Cardiology Exam Const Appearance: cooperative, healthy appearing and no acute distress Nutritional Appearance: well nourished Orientation: alert, oriented x3 and oriented to person Head Head: normal to inspection, normocephalic and atraumatic Nose: external nose normal Face and Sinus: face symmetric Mouth: oral mucosae normal Eyes General: appearance normal, both eyes and all related structures Eyelids: eyelids normal Conjunctivae: conjunctivae normal Pupils: PERRL and normal by confrontation EOM: EOM intact bilaterally Neck Neck: normal visual inspection and full ROM Carotids: normal carotid upstroke Chest Chest inspection: normal inspection of the chest Auscultation: Bilateral: Clear to Auscultation Cardio Palpation: normal PMI Rate: regular rate Rhythm: regular rhythm Heart sounds: S1 normal and S2 normal GI GI: normal to inspection, no hepatosplenomegaly and bowel sounds present Neuro General: alert, awake, oriented x3, CN's II-XI intact bilaterally and moves all extremities Skin Skin: no rashes or lesions noted Extremities Pulses: Normal: Right Femoral Pulse, Left Femoral Pulse, Right Dorsalis Pedis P ulse, Left Dorsalis Pedis Pulse, Right Posterior Tibial Pulse, Left Posterior Tibial Pulse, Right Radial Pulse, Left Radial Pulse Lower Extremity Edema: None: Bilateral Psych Psychological: normal affect Assessment & Plan 1. Dyspnea on exertion R06.09 Plan 1. He underwent a stress echocardiogram on 06/22/2019 that was considered to be an abnormal, adequate, treadmill echocardiogram that was positive for ischemia by echocardiographic criteria. This was markedly reduced his exercise capacity was markedly reduced compared to stress test in 2005. His final LVEF was 60%. His mid anterior segment was mildly hypokinetic, his mid lateral segment was mildly hypokinetic, and his mid anterior septal segment was also mildly hypokinetic. Due to his unexplainable shortness of breath and abnormal stress test, he will proceed with heart catheterization to further evaluate coronary artery disease component. 2. Hyperlipidemia E78.5 Plan 2. Hyperlipidemia: The patient has significant hyperlipidemia with an LDL of 170. Patient has tried several statin based medications, and is currently on Crestor. However, the patient has severe cramping issues in his bilateral upper and lower extremities which may be attributable to his statin based medication. Although he has had a statin holiday for about 2 weeks time in the past I recommended that he discontinue his statins at this time but continue his vitamin D. We will hold off on statins for at least 1 month to determine if his cramping gets better. Is also possible the patient may have cervical neck injury which may be causing spinal stenosis or other issues with upper and lower extremity weakness and cramping. Should the patient get improvement of his cramping we will consider switching him to gemfibrozil. 3. History of tobacco use Z87.891 Plan 2. Tobacco abuse: The patient quit tobacco about 5 months ago after approximately [id number] smoking history. He will proceed with pulmonary function test as ordered in last office visit. Based on results, he may benefit from pulmonology evaluation. 4. Hypersomnia G47.10 Plan 4. Hypersomnia: The patient has signs and symptoms of possible undiagnosed obstructive sleep apnea. Recommend obtaining a sleep study to determine if he has sleep apnea which may explain a lot of his fatigue, cramping, and extreme tiredness. Patient has evidence of snoring, waking up unrested, and significant daytime somnolence. He states that he only sleeps a few hours at a time. He was encouraged to consider a sleep study to further evaluate. Thank you for allowing us to participate in the patients plan of care, if you have any questions please do not hesitate to call. This note was generated using a voice recognition system and there may be incorrect words, spelling or punctuation that were not noted when reviewing the office note prior to saving.
--- NOTE | 2019-07-05 09:59 | CL.D_ITS ---
Patient Name: DOMINGA DOMINIQUE Study Date: 07/04/2019 Performing: Sammy Solano MD Ht: 66.14 inches 168 cm : 1960 Wt: 178.99 lbs 81.19 kg Age: 59 Gender: male BSA: 1.91 PROCEDURE(S) PERFORMED [id number] CLINICAL PROFILE AND INDICATIONS Indications: Suspected CAD Heart Failure: None Stress/Imaging Date: 06/22/2019Stress Echocardiogram: Positive Low Risk Angina Classification Anginal Classification w/in 2 Weeks: No symptoms CAD Presentations: Other: Dyspnea on exertion Comorbidities/Risk Factors: Current/Recent Smoker (< 1year) Hypertension Dyslipidemia CONCLUSIONS Normal LV size, wall motion,and systolic function Perserved Left Ventricular systolic function with normal EDP LVEF: by LV gram 65 % Non obstructive coronary arteries RECOMMENDATIONS Management as per referring 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 Manual sheath removal. Start Hyzaar 50/12.5mg po daily. Manual sheath removal. DESCRIPTION OF PROCEDURE The patient arrived to the procedure lab. The risks and benefits of the procedure as well as a full d escription of our services here and current unavailability of surgical backup were fully explained to the patient and/or their significant other prior to the catheterization. The Timeout was completed, verifying the correct patient and procedure. The patient's procedural site was prepped and draped in the usual fashion. Local anesthetic was given subcutaneously to right groin region with Lidocaine 2%. Using a modified Seldinger technique, arterial access was obtained via the right femoral artery, a 4 Fr sheath was inserted Left Coronary Artery selective angiography was performed in multiple views us ing a 4 Fr. JL5 catheter. Right Coronary Artery selective angiography was then performed in multiple views using a 4 Fr. 3DRC catheter. Left Ventriculography was performed in OLIVO projection using a 4 Fr . Pigtail catheter. LV to AO pullback pressures were then recorded.The arterial sheath was pulled and manual compression applied until hemostasis is achieved. CORONARY ANGIOGRAPHY DOMINANCE: Right Dominant LEFT HEART ASSESSMENT Left Ventricular Ejection Fraction: by LV Gram 65 % Normal LV wall motion Normal Left Ventricular systolic function LVEDP: 12 mmHg Normal Left Ventricular End Diastolic Pressure LEFT MAIN: Angiographically normal LEFT ANTERIOR DESCENDING ARTERY: PROX LAD: Mild luminal irregularities less than 30% CIRCUMFLEX ARTERY: Angiographically normal RIGHT CORONARY ARTERY: Angiographically normal COMPLICATIONS No Complications PROCEDURE MEDICATIONS Versed 1 mg IV Oxygen: 2 L/min via nasal cannula SUMMARY OF HEMODYNAMIC DATA Time AIR REST ECG 08:10:24 AO 150/81 (106) SA 08:57:04 LV 139/-12, 12 09:02:58 LV 149/-13, 14 09:03:05 LVp 148/-12, 13 09:03:09 AOp 146/78 (104) 09:03:14 Signed By Sammy Solano MD On 07/04/2019 09:14:00 Sammy Solano MD
== END 2019-07-04 13:35 | disposition home or self-care (01) ==
LOC: CLSP 07:53
PROVIDERS: Family Provider Family Medicine; PCP Family Medicine; Referring Provider Internal Medicine Cardiovascular Disease; Visit Provider Internal Medicine Cardiovascular Disease
DX: R06.09 Other forms of dyspnea (principal); R42 Dizziness and giddiness; E78.00 Pure hypercholesterolemia, unspecified; G47.10 Hypersomnia, unspecified; I10 Essential (primary) hypertension; K21.9 Gastro-esophageal reflux disease without esophagitis; M06.9 Rheumatoid arthritis, unspecified; Z85.828 Personal history of other malignant neoplasm of skin; Z79.82 Long term (current) use of aspirin; Z79.899 Other long term (current) drug therapy; F10.99 Alcohol use, unspecified with unspecified alcohol-induced disorder; Z87.891 Personal history of nicotine dependence
CPT/HCPCS: 36415; 71046; 80048; 85027; 85610; 85730; 93458; 99152; J7040; Q9967; C1769; C1894

== ENCOUNTER → 2019-07-11 20:08 | Outpatient (CLI) | payer MEDICAID, SELFPAY ==
[2019-06-01 09:51] VITALS: BMI 29.3
[2019-07-04 13:41] VITALS: BMI 29.3
[2019-07-11] MEDS: Zolpidem Tartrate 5 MG Tablet PO (21:10)
== END ==
PROVIDERS: Family Provider Family Medicine; PCP Family Medicine; Referring Provider Internal Medicine Cardiovascular Disease; Visit Provider Internal Medicine Cardiovascular Disease
DX: G47.10 Hypersomnia, unspecified (principal); I10 Essential (primary) hypertension; R06.09 Other forms of dyspnea; R06.83 Snoring
CPT/HCPCS: 95810

== ENCOUNTER → 2019-08-11 10:45 | Outpatient (CLI) | payer MEDICAID, SELFPAY ==
[2019-08-01 14:16] VITALS: BMI 30.2
--- NOTE | 2019-08-11 10:46 | CT_ITS ---
STUDY: LOW DOSE CT LUNG CANCER SCREENING REASON FOR EXAM: Male, 59 years old. Long history of smoking. Screening for lung cancer. Tobacco use, former smoker, smoked 1 pack/day x 30 years, quit 7 months ago. COPD, SOB on exertion, 180#. RADIATION DOSAGE (If Supplied By Facility): CTDIvol = ( 3.02 ) mGy, DLP = ( 102.69 ) mGycm TECHNIQUE: No contrast was administered. Low dose technique was utilized (average mAS-38 and kVp 120). 1.25 mm axial source images with a slice interval of 1.25-mm were reconstructed in lung windows. 2.5 mm axial source images with a slice interval of 2.5-mm were reconstructed in lung windows. 5.0 mm axial source images with a slice interval of 5.0-mm were reconstructed in soft tissue windows. Nodule measured using lung windows on PACS and/or independent workstation with automated measurement of minimum and maximum diameter. Nodule measurement reported as average diameter rounded to the nearest whole number. Growth is defined as an increase ins size of greater than 1.5 mm. COMPARISON: None. NODULES: There is hyperinflation of the lungs consistent with chronic obstructive lung disease (COPD). Subsegmental atelectases are noted in the anterior segment of the right upper lobe, and medial segment of right middle lobe and in the anterior segment of the lingula. There is no demonstrated pleural abnormality. Normal heart and pericardium. Normal mediastinum. Normal hilar regions. Normal unenhanced pulmonary arteries. Normal aorta arch and descending thoracic aorta. There are multi-level degenerative changes of the thoracic spine. There is no demonstrated abnormality of the visualized upper abdomen. CT/Low Dose CT Lung Screening IMPRESSION: Lung-RADS category 2. COPD. Benign findings. Recommendation: Routine screening CT scan in one year. IMPORTANT NOTES FOR USE: ACR Lung-RADS Version 1.0 Assessment Categories Release Date: February 04, 2014 Category: Coded 0-4 bases on nodule(s) with highest degree of suspicion. Negative screen is defined as categories 1 and 2; a positive screen is defined as categories 3 and 4. Category 3 and 4A nodules that are unchanged on interval CT should be coded as category 2, and individuals returned to screening in 12 months. Category 4X: Category 3 or 4 nodules with additional imaging findings that increase the suspicion of lung cancer, such as spiculation, GGN that doubles in size in 1 year, enlarged lymph notes, etc. Category Modifiers: S (significant finding unrelated to lung cancer) and C (prior history of treated lung cancer) may be added to the 0-4 Lung-RADS Electronically Signed: Dalia Rai, at 7:35 EST Tel , Service support ,
== END ==
PROVIDERS: Family Provider Family Medicine; PCP Family Medicine; Referring Provider Nurse Practitioner Acute Care; Visit Provider Nurse Practitioner Acute Care
DX: F17.200 Nicotine dependence, unspecified, uncomplicated (principal)
CPT/HCPCS: G0297

== ENCOUNTER → 2019-08-27 20:08 | Outpatient (CLI) | payer MEDICAID, SELFPAY ==
[2019-08-01 14:16] VITALS: BMI 30.2
== END ==
PROVIDERS: Family Provider Family Medicine; PCP Family Medicine; Referring Provider Nurse Practitioner Acute Care; Visit Provider Nurse Practitioner Acute Care
DX: G47.33 Obstructive sleep apnea (adult) (pediatric) (principal)
CPT/HCPCS: 95811

== ENCOUNTER → 2019-11-14 09:58 | Outpatient (CLI) | payer MEDICAID, SELFPAY ==
[2019-10-08 07:58] VITALS: BMI 30.4
--- NOTE | 2019-11-14 10:02 | US_ITS ---
STUDY: ABDOMINAL ULTRASOUND REASON FOR EXAM: Male, 59 years old. PAIN OF THE UPPER ABD -- INTERMITTENT DIARRHEA TECHNIQUE: Transabdominal ultrasound was performed with real-time and static florez scale imaging. TECHNICAL QUALITY: Adequate. COMPARISON: None. FINDINGS: Aorta: Visualized portions of abdominal aorta are normal in diameter. IVC: Visualized portions appear patent. Pancreas: Visualized portions of pancreas are unremarkable. Liver: Measures 15.7 cm. Liver shows increased echogenicity. No liver masses identified. Gallbladder: No stones or wall thickening. Negative sonographic Chavira''s sign. Common bile duct: Measures 4 mm. No intraductal stones identified. Right kidney: Measures 9.5 cm in length. Normal contour. No cysts. No masses, stones, or hydronephrosis identified. Renal cortical thickness appears normal. Left kidney: Measures 10.1 cm in length. Normal contour. No cysts. No masses, stones, or hydronephrosis identified. Renal cortical thickness appears normal. Spleen: Measures 9.0 cm. It shows homogeneous echotexture. Additional findings: None of significance. US/Abdomen Complete IMPRESSION: Diffuse hepatic steatosis. Electronically Signed: Keyon Matta, at 16:01 EST Tel , Service support ,
== END ==
PROVIDERS: PCP Family Medicine; Referring Provider Family Medicine; Visit Provider Family Medicine
DX: R10.10 Upper abdominal pain, unspecified (principal)
CPT/HCPCS: 76700

== ENCOUNTER 2020-06-17 07:50 | Day surgery (SDC) | payer MEDICAID, SELFPAY ==
[2020-06-10 08:11] VITALS: BMI 30.3
[2020-06-11 08:59] VITALS: BMI 30.6
[2020-06-17] VITALS (7 sets, daily range): BP systolic 120–152; BP diastolic 87–101; PULSE 50–55; RESP 16; TEMP 36.1–36.3; O2SAT 97–100; BMI 30.6
--- NOTE | 2020-06-17 08:02 | HP.PCM_ITS ---
Problem List (1) Abdominal pain Status: Acute Qualifiers: History and Physical Date of Admission: 06/17/20 Intake Visit Reasons: Abdominal Pain Chief Complaint: abd pain Recruit Instructor Required: No Is patient in pain?: No Allergies No Known Allergies Allergy (Verified 06/10/20 08:11) Medications amlodipine 5 mg tablet 5 mg PO QHS 01/24/19 [History Confirmed 06/10/20] atenolol 50 mg tablet 50 mg PO QHS 01/24/19 [History Confirmed 06/10/20] cyanocobalamin (vitamin B-12) 500 mcg tablet 500 mcg PO DAILY 01/24/19 [History Confirmed 06/10/20] Albuterol IH (ProAir) [Proair Hfa] 1 - 2 puff INHALATION Q4H PRN PRN 02/13/19 [History Confirmed 06/10/20] Cholecalciferol (Vitamin D3) [Vitamin D3] 4,000 unit PO DAILY 02/22/19 [History Confirmed 06/10/20] aspirin 81 mg tablet,delayed release 81 mg PO DAILY #30 tab 06/01/19 [Rx Confirmed 06/10/20] omeprazole 20 mg capsule,delayed release 20 mg PO DAILY #90 cap 07/04/19 [Rx Confirmed 06/10/20] rosuvastatin 5 mg tablet 5 mg PO DAILY 12/13/19 [History Confirmed 06/10/20] tiotropium 2.5 mcg-olodaterol 2.5 mcg/actuation mist for inhalation 2 puff INHALATION DAILY #4 g 12/13/19 [Rx Confirmed 06/10/20] PFS Medical History Seasonal allergies (Acute) Back problem (Acute) Bone fracture (Acute) Rheumatoid arthritis (Chronic) Skin cancer (Acute) Abnormal stress echo (Acute) Chest tightness (Acute) Dyspnea on exertion (Acute) Hypersomnia (Acute) Snoring (Acute) Exercise-induced leg cramps (Acute) Hypertension (Chronic) Hyperlipidemia (Chronic) History of tobacco use (Chronic) GERD (gastroesophageal reflux disease) (Chronic) Surgical History History of bone graft (Resolved) Family History Sister Breast cancer Mother Hyperlipidemia Diabetes Social History (Updated 06/10/20 @ 08:[address] Teja Munoz MD) Smoking Status: Former smoker Tobacco: How many years used: 35 how long ago did patient quit smokin months ago counseling given: provider counseling alcohol intake: current substance use type: does not use HPI HPI HPI: DOMINGA DOMINIQUE, is a 60 M who presents to the office today for surgical consultation regarding abdominal pain and bloating and reflux disease. He is referred by Dr. Solis and a written copy of my surgical consult recommendations will be returned to him. I assisted the patient with a open access screening colonoscopy February 16, 2019. Tubular adenoma of the cecum was removed. Random biopsies were not remarkable. The patient states that he stopped smoking almost year and a half ago. Prior to that he states he gained a fair amount of weight. Claims he has not gained any weight since then. He does have COPD. He has been having some looser stools. He was evaluated with a right upper quadrant ultrasound which was negative for gallstones. Recent laboratory that was obtained by Dr. Solis was not remarkable. As of May 19, 2020 vitamin D level slightly low at 21.4. TSH was normal at 2.88. BUN is 12 and creatinine 0.8. Glucose 94. Liver function tests were normal. ESR was 2. Cholesterol was elevated to 240 and triglycerides 248. White blood cell count was 6.1 with a hemoglobin of 14.3 and hematocrit of 44.7 and a platelet count of 264,000. [facility] Imaging Services [address] [place] [id number] Abdomen Complete MR#: [id number]:[id number] Name: DOMINGA DOMINIQUE #:[id number] : 1960M 59 From: Keyon Matta MD PCP:Slade Solis MD Status:REG CLI Study:Abdomen Complete Date of Exam:11/14/19 Exam#[id number] Ordering Dr: Slade Solis MD STUDY: ABDOMINAL ULTRASOUND REASON FOR EXAM: Male, 59 years old. PAIN OF THE UPPER ABD -- INTERMITTENT DIARRHEA TECHNIQUE: Transabdominal ultrasound was performed with real-time and static florez scale imaging. TECHNICAL QUALITY: Adequate. COMPARISON: None. FINDINGS: Aorta: Visualized portions of abdominal aorta are normal in diameter. IVC: Visualized portions appear patent. Pancreas: Visualized portions of pancreas are unremarkable. Liver: Measures 15.7 cm. Liver shows increased echogenicity. No liver masses identified. Gallbladder: No stones or wall thickening. Negative sonographic Chavira''s sign. Common bile duct: Measures 4 mm. No intraductal stones identified. Right kidney: Measures 9.5 cm in length. Normal contour. No cysts. No masses, stones, or hydronephrosis identified. Renal cortical thickness appears normal. Left kidney: Measures 10.1 cm in length. Normal contour. No cysts. No masses, stones, or hydronephrosis identified. Renal cortical thickness appears normal. Spleen: Measures 9.0 cm. It shows homogeneous echotexture. Additional findings: None of significance. US/Abdomen Complete IMPRESSION: Diffuse hepatic steatosis. Electronically Signed: Keyon Matta, at 16:01 EST Tel , Service support , HPI HPI HPI: DOMINGA DOMINIQUE, is a 60 M who presents to the office today for ROS General General: Yes weight change and fatigue; no appetite, colon cancer, breast cancer or weakness HEENT HEENT: Yes difficulty swallowing; no eye injury, eye surgery, swollen glands or hoarseness Endo Endocrine: No thyroid disease, diabetes mellitus, thyroid cancer, Hair loss, heat intolerance or cold intolerance Skin Skin: Yes rash; no changing moles Breast Breast: No left breast lump, right breast lump, nipple discharge, breast pain, abnormal mammogram, abnormal US or breast enlargement Musc Musculoskeletal: Yes back problems, arthritis and rheumatoid arthritis; no gout or joint pain Cardio Cardiovascular: No murmur, pacemaker, heart disease, atrial fibrillation, high blood pressure, heart attack, heart stent, palpitations, shortness of breat with exertion or chest pain Psych Psychiatric: Yes depression and anxiety; no hearing voices Resp Respiratory: Yes shortness of breath, Yes sleep apnea, Yes cough, Yes COPD, No asthma, No emphysema, No wheezing Gastro Gastrointestinal: Yes abdominal pain, Yes nausea or vomiting, Yes diarrhea, No constipation, No blood in stool, Yes acid reflux, No hemorrhoids, No ulcers, No gallbladder problem, No black,tarry stools Sotero Hematologic: No blood thinners, No blood disorders, No bleeding, No anemia, No blood clots Neuro Neurologic: No system reviewed and no additional complaints, except as docu, No as per HPI, No abnormal walking, No abnormal hearing, No abnormal movements, No abnormal speech, No behavioral changes, No burning sensations, No confusion, No seizure-like activity, No unsteadiness, No dizziness, No localized weakness, No frequent falls, No headache(s), No lack of coordination, No loss of vision, No memory loss, Yes numbness, No other visual disturbances, No radiating pain, No restless legs, No sensory deficit, No fainting, Yes tingling, No tremor(s), No weakness, No other Exam Const General: cooperative, comfortable, no acute distress Nutritional Appearance: obese Orientation: alert, awake Other: Patient appears to be older than stated age Chest Breast Palpation: No nipple discharge Other: Increased anterior posterior diameter Resp Other: Diminished respiratory excursion with breathing. Clear apices Cardio Rate: regular rate Rhythm: regular rhythm Heart Sounds: no murmurs GI Other: Distended, nontender, nonspecific bowel sounds, overweight Musc Cervical Spine: normal cervical lordosis Skin General: no rashes or lesions noted Neuro Cognition: normal cognition Extrem General: no calf tenderness Psych Affect: normal affect Assessment & Plan Problems 1. Epigastric pain R10.13 Plan Upper abdominal pain and escalated reflux symptoms and dyspepsia may all be secondary to the patient's weight gain. Gallbladder ultrasound was not remarkable but the potential for biliary dyskinesia exists as well. I would cer tainly concur with Dr. Solis that a esophagogastroduodenoscopy with biopsy and possible polypectomy would be indicated I recommend this to the patient. I additionally recommend to the patient a hepatobiliary scan. He is aware of technique, benefit, risks, alternatives. I appreciate the opportunity of assisting with the surgical care. We will schedule and expedite the patient's care is pertinent. Copy: Dr. Slade Munoz M.D., F.A.C.S. Orders Orders: EGD Today Hepatobilliary Img w/Pharm Int Today R10.9 Coding Level of Care Code 30668 Diagnoses Epigastric pain R10.13 ??Abdominal location: epigastric I have re-examined the patient. There are no clinical changes since date of exam. Procedure Criteria Procedure Type: Elective COVID Risk Discussion: The surgeon/proceduralist and patient have discussed in detail the risk of exposure to and/or potential harm posed by the COVID-19 virus with having a surgery/procedure at this time versus the risk of delaying the surgery/procedure. It is not possible to know either the risk of delaying the surgery or procedure or chance of getting an infection with perfect accuracy, but a joint decision was made between the patient and the surgeon/proceduralist to proceed at this time with the scheduled surgery/procedure as indicated on the consent form.
[2020-06-17] MEDS: Lactated Ringers 1,000 ML 100 ML IV (08:18)
--- NOTE | 2020-06-17 09:00 | EGD_PTH ---
PATIENT: DOMINGA DOMINIQUE LOC: EN U#:[id number] AGE/SX: 60/M ROOM: RE06/17/[address]: Dr. Teja Munoz MD : 1960 BED: DIS: 06/17/2020 SPEC #: [id number] RECD: 06/17/20 09:40 STATUS: AMANDA RICHARD #: [id number] MORTEZA: 06/17/20 09:[address]: Teja Munoz DEPT: SURGICAL PATHOLOGY RECD BY: José Luis Lowry ENTERED: 06/17/20 11:07 SP TYPE: EGD BIOPSY OT DR: Dr. Slade Solis MD Tissues: A - Duodenum, NOS B - Gastric mucous membrane C - Esophageal mucous membrane D - Esophageal mucous membrane Procedures: Special Stain Group II Surgery Specimen Level IV Alcian Blue/PAS (control) HEADER OPERATION: [place] [place] DIAGNOSIS: Abdominal pain TISSUE SUBMITTED: A - Duodenum biopsy, B - Antrum biopsy for histo and H. pylori, C - Distal esophagus biopsy, D - Mid esophagus biopsy MICROSCOPIC DIAGNOSIS A. Duodenum, biopsy: A fragment of duodenal mucosa with Curt gland hyperplasia. B. Antrum, biopsy: Mild gastritis. See microscopic description and comment. C. Distal esophagus, biopsy: A fragment of gastroesophageal mucosa with mild chronic inflammation. Intestinal metaplasia (goblet cell metaplasia) is not identified. Fragments of food particles. See comment. D. Mid esophagus, biopsy: Fragments of squamous epithelium, no pathologic diagnosis. SJ:mickie 06/18/20 COMMENT B. The results of immunohistochemistry for Helicobacter pylori will be reported separately ([id number]). C. Alcian blue/PAS stain with matched control is used in the evaluation of the specimen. MICROSCOPIC DESCRIPTION Slides are reviewed. B. The specimen shows fragments of gastric mucosa with chronic inflammatory cell infiltrates in the lamina propria consisting of lymphocytes and plasma cells, consistent with mild chronic gastritis. GROSS DESCRIPTION A - Received in fixative is one container labeled with the patient's name and designated duodenum biopsy. The specimen consists of one irregular fragment of light marcus soft tissue that measures 0.3 x 0.3 x 0.1 cm. The specimen is totally submitted in one cassette. B - Received in fixative is one container labeled with the patient's name and designated antrum biopsy. The specimen consists of one irregular fragment of light marcus soft tissue that measures 0.8 x 0.2 x 0.1 cm. The specimen is totally submitted in one cassette. C - Received in fixative is one container labeled with the patient's name and designated distal esophagus biopsy. The specimen consists of multiple irregular fragments of light marcus soft tissue that in aggregate measure 0.5 x 0.5 x 0.1 cm. The specimen is totally submitted in one cassette. D - Received in fixative is one container labeled with the patient's name and designated mid esophagus biopsy. The specimen consists of two irregular fragments of light marcus soft tissue that in aggregate measure 0.5 x 0.2 x 0.1 cm. The specimen is totally submitted in one cassette. / SJ:rg 06/17/20 TC:3 CPT: 03819 x4, 62497
--- NOTE | 2020-06-17 09:00 | IMM_PTH ---
PATIENT: DOMINGA DOMINIQUE LOC: EN U#:[id number] AGE/SX: 60/M ROOM: RE06/17/[address]: Dr. Teja Munoz MD : 1960 BED: DIS: 06/17/2020 SPEC #: [id number] RECD: 06/17/20 14:18 STATUS: AMANDA REQ #: [id number] MORTEZA: 06/17/20 09:[address]: Teja Munoz DEPT: IMMUNOHISTOCHEMISTRY RECD BY: Violeta Thakur ENTERED: 06/17/20 14:18 SP TYPE: IMMUNO OTHR DR: Dr. Slade Solis MD Tissues: B - Stomach, NOS Procedures: H Pylori (initial) PHYSICIAN & INSTITUTION [place] [address] SPECIMEN INFORMATION: Tissue Source: B - Antrum biopsy Clinical Info: Abdominal pain Specimen Number: [id number] CPT code: 89017 METHODOLOGY: Deparaffinized sections of prefer/formalin-fixed tissue or PAP/DQ stained slides are incubated with monoclonal/polyclonal antibodies/oligonucleotide probes. Localization is made via biotin free immunoperoxidase method. Appropriate controls are performed and reacted as expected. Results on target cell population are indicated in the following table: RESULTS: ANTIBODY / CLONE RESULT Block B H Pylori (polyclonal) negative These tests were developed and their performance characteristics determined by [facility]. They may not have been cleared or approved by the U.S. Food and Drug Administration. The FDA has determined that such clearance or approval is not necessary. INTERPRETATION: B. Antrum biopsy: Negative for Helicobacter pylori organisms. SJ:mickie 06/18/20
--- NOTE | 2020-06-17 09:25 | OP.EGD_ITS ---
Patient Name: Maico Woo Procedure Date: 06/17/2020 9:09 AM Date of : 1960 Age: 60 Procedure: Upper GI endoscopy Indications: Epigastric abdominal pain Providers: Teja Munoz MD Referring MD: Slade Solis Medicines: See the Anesthesia note for documentation of the administered medications Complications: No immediate complications. Procedure: Pre-Anesthesia Assessment: - Prior to the procedure, a History and Physical was performed, and patient medications and allergies were reviewed. The patient's tolerance of previous anesthesia was also reviewed. The risks and benefits of the procedure and the sedation options and risks were discussed with the patient. All questions were answered, and informed consent was obtained. Prior Anticoagulants: The patient has taken no previous anticoagulant or antiplatelet agents. ASA Grade Assessment: II - A patient with mild systemic disease. After reviewing the risks and benefits, the patient was deemed in satisfactory condition to undergo the procedure. After obtaining informed consent, the endoscope was passed under direct vision. Throughout the procedure, the patient's blood pressure, pulse, and oxygen saturations were monitored continuously. The gastroscope was introduced through the mouth, and advanced to the second part of duodenum. The upper GI endoscopy was accomplished without difficulty. The patient tolerated the procedure well. Scope In: 9:14:05 AM Scope Out: 9:18:29 AM Total Procedure Duration Time 0 hours 4 minutes 24 seconds Findings: The mid esophagus and distal esophagus were normal. Biopsies were taken with a cold forceps for histology. A 1 cm hiatal hernia was present. Diffuse mildly erythematous mucosa without bleeding was found in the gastric antrum. Biopsies were taken with a cold forceps for histology. The examined duodenum was normal. Biopsies were taken with a cold forceps for histology. Impression: - Normal mid esophagus and distal esophagus. Biopsied. - 1 cm hiatal hernia. - Erythematous mucosa in the antrum. Biopsied. - Normal examined duodenum. Biopsied. Recommendation: - Discharge patient to home. - Resume previous diet. - Continue present medications. - Telephone my office for pathology results in 1 week. No findings to correlate with abdominal pain or bloating HIDA exam pending. May be secondary to BiPap machine Procedure Code(s): --- Professional --- 48696, Esophagogastroduodenoscopy, flexible, transoral; with biopsy, single or multiple Diagnosis Code(s): --- Professional --- K44.9, Diaphragmatic hernia without obstruction or gangrene K31.89, Other diseases of stomach and duodenum R10.13, Epigastric pain CPT copyright 2017 [employer]. All rights reserved. The codes documented in this report are preliminary and upon diabetic educator review may be revised to meet current compliance requirements. Teja Munoz MD 06/17/2020 9:24:50 AM This report has been signed electronically. Number of Addenda: 0 Note Initiated On: 06/17/2020 9:09 AM
--- NOTE | 2020-06-17 09:25 | OP.CCLET_ITS ---
06/17/2020 Slade Solis Re : Upper GI endoscopy procedure for Maico Woo Dear Irma This procedure was performed on Wednesday, June 17, 2020. My impressions and recommendations are as follows: Impressions : - Normal mid esophagus and distal esophagus. Biopsied. - 1 cm hiatal hernia. - Erythematous mucosa in the antrum. Biopsied. - Normal examined duodenum. Biopsied. Recommendations : - Discharge patient to home. - Resume previous diet. - Continue present medications. - Telephone my office for pathology results in 1 week. No findings to correlate with abdominal pain or bloating HIDA exam pending. May be secondary to BiPap machine My findings are described in the full procedure note, which is enclosed. If I can be of further assistance, please feel free to contact me at Doctor phone number(s): Work: . Sincerely, Teja Munoz MD 06/17/2020 9:24:50 AM This report has been signed electronically.
== END 2020-06-17 10:16 | disposition home or self-care (01) ==
LOC: EN 07:51 → AC 07:51
PROVIDERS: PCP Family Medicine; Referring Provider Family Medicine; Visit Provider Surgery
PROC: 0DJ08ZZ Inspection of Upper Intestinal Tract, Via Natural or Artificial Opening Endoscopic (ICD-10-PCS; CPT 43235; principal; 2020-06-17 08:55)
DX: K29.70 Gastritis, unspecified, without bleeding (principal); K44.9 Diaphragmatic hernia without obstruction or gangrene; Z11.59 Encounter for screening for other viral diseases; I10 Essential (primary) hypertension; M06.9 Rheumatoid arthritis, unspecified; E78.5 Hyperlipidemia, unspecified; E78.00 Pure hypercholesterolemia, unspecified; K21.9 Gastro-esophageal reflux disease without esophagitis; N32.81 Overactive bladder; J44.9 Chronic obstructive pulmonary disease, unspecified; G47.30 Sleep apnea, unspecified; G25.81 Restless legs syndrome; Z95.828 Presence of other vascular implants and grafts; Z79.82 Long term (current) use of aspirin; Z79.899 Other long term (current) drug therapy; Z87.891 Personal history of nicotine dependence
CPT/HCPCS: 43239; 87635; 88305; 88313; 88342; C9803; J7120; U0003

== ENCOUNTER → 2020-06-19 11:50 | Outpatient (CLI) | payer MEDICAID, SELFPAY ==
[2020-06-10 08:11] VITALS: BMI 30.3
[2020-06-17 08:12] VITALS: BMI 30.6
--- NOTE | 2020-06-19 11:55 | NM_ITS ---
CLINICAL: 60-year-old male with reported history of postprandial abdominal pain and bloating. RADIONUCLIDE HEPATOBILIARY SCINTIGRAPHY COMPARISON: Abdominal ultrasound report 11/14/2019 FINDINGS: Following the intravenous administration of 5.8 mCi of 99m Tc Mebrofenin, hepatobiliary images reveal: 1. Relatively prompt and homogeneous radiopharmaceutical concentration is noted by a normal sized liver. No parenchymal defects are identified. 2. Gallbladder activity is identified by 60 minutes post radiopharmaceutical administration. 3. Small intestinal tract is observed at 30 minutes following tracer injection. 4. Washout of the radiopharmaceutical by the hepatic parenchyma appears qualitatively normal. Cholecystokinin (0.02 ug/kg) was administered intravenously over a 30-minute period. The post CCK gallbladder ejection fraction calculated at 20 minutes following Cholecystokinin administration was noted to be 38.0 % (normal greater than 35%). During 30 minutes of post CCK imaging, there is no scintigraphic evidence of reflux of the radiotracer into the common hepatic duct or refilling of the gallbladder. 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 The patient experienced abdominal pain with cholecystokinin infusion. NM/Hepatobilliary Img w/Pharm Int IMPRESSION: 1. A gallbladder ejection fraction calculated to be greater than 35% following the administration of Cholecystokinin makes the probability of functional hepatobiliary disease (gallbladder and/or sphincter of Oddi dyskinesia) and/or organic hepatobiliary disease (chronic acalculous cholecystitis and/or cystic duct syndrome) to be low. (Amada Arriaza et al, Journal of Nuclear Medicine 32:1695, 1990). 2. There is scintigraphic evidence of post CCK duodenal-gastric reflux as described above. (Mirza et al, Nucl Med [place] [place] Press pg. 35, 1980). Electronically Signed: Jere Davis DO at 22:59 EDT Tel , Service support ,
== END ==
PROVIDERS: PCP Family Medicine; Visit Provider Surgery
DX: R10.9 Unspecified abdominal pain (principal)
CPT/HCPCS: 78227; A9537; J2805

== ENCOUNTER → 2020-08-20 07:42 | Outpatient (CLI) | payer MEDICAID, SELFPAY ==
[2020-06-17 08:12] VITALS: BMI 30.6
--- NOTE | 2020-08-20 07:43 | CT_ITS ---
STUDY: LOW DOSE CT LUNG CANCER SCREENING REASON FOR EXAM: Male, 60 years old. TOBACCO DEPENDENCY, NON-SMOKER X 2 YRS, COPD, 1.5 PPD SMOKER X 30 YRS RADIATION DOSAGE (If Supplied By Facility): CTDIvol = ( 3.02 ) mGy, DLP = ( 108.72 ) mGycm TECHNIQUE: No contrast was administered. Low dose technique was utilized (average mAS-38 and kVp 120). 1.25 mm axial source images with a slice interval of 1.25-mm were reconstructed in lung windows. 2.5 mm axial source images with a slice interval of 2.5-mm were reconstructed in lung windows. 5.0 mm axial source images with a slice interval of 5.0-mm were reconstructed in soft tissue windows. Nodule measured using lung windows on PACS and/or independent workstation with automated measurement of minimum and maximum diameter. Nodule measurement reported as average diameter rounded to the nearest whole number. Growth is defined as an increase ins size of greater than 1.5 mm. COMPARISON: Comparison is made with prior study dated 08/11/2019. NODULES: No suspicious nodules are seen. Emphysema: Diffuse centrilobular emphysema worse in the upper lobes. Stable scarring at lung apices as well as in the anterior aspect of the right middle lobe as well as the lingular segment of the left upper lobe. Endobronchial lesion: None Aorta: Mild atherosclerotic plaques of the aortic arch. Coronary arteries: Unremarkable. Mediastinal nodes: Small benign-appearing mediastinal lymph nodes. Other chest and abdominal findings: CT/Low Dose CT Lung Screening IMPRESSION: Lung-RADS category 2 - Continue annual screening with LDCT in 12 months. IMPORTANT NOTES FOR USE: ACR Lung-RADS Version 1.0 Assessment Categories Release Date: February 04, 2014 Category: Coded 0-4 bases on nodule(s) with highest degree of suspicion. Negative screen is defined as categories 1 and 2; a positive screen is defined as categories 3 and 4. Category 3 and 4A nodules that are unchanged on interval CT should be coded as category 2, and individuals returned to screening in 12 months. Category 4X: Category 3 or 4 nodules with additional imaging findings that increase the suspicion of lung cancer, such as spiculation, GGN that doubles in size in 1 year, enlarged lymph notes, etc. Category Modifiers: S (significant finding unrelated to lung cancer) and C (prior history of treated lung cancer) may be added to the 0-4 Lung-RADS Electronically Signed: Henry Dan, at 9:06 EST , Service support ,
== END ==
PROVIDERS: PCP Family Medicine; Referring Provider Internal Medicine Critical Care Medicine; Visit Provider Internal Medicine Critical Care Medicine
DX: F17.211 Nicotine dependence, cigarettes, in remission (principal)
CPT/HCPCS: G0297

== ENCOUNTER 2021-12-16 06:42 | Outpatient (CLI) | payer MEDICARE, MEDICAID, SELFPAY ==
--- NOTE | 2021-12-16 06:47 | CT_ITS ---
STUDY: LOW DOSE CT LUNG CANCER SCREENING REASON FOR EXAM: Male, 61 years old. Nonsmoker with greater than 40 pack-year history. RADIATION DOSAGE (If Supplied By Facility): CTDIvol = ( 3.02 ) mGy, DLP = ( 115.88 ) mGycm TECHNIQUE: No contrast was administered. Low dose technique was utilized (average mAS-38 and kVp 120). 1.25 mm axial source images with a slice interval of 1.25-mm were reconstructed in lung windows. 2.5 mm axial source images with a slice interval of 2.5-mm were reconstructed in lung windows. 5.0 mm axial source images with a slice interval of 5.0-mm were reconstructed in soft tissue windows. Nodule measured using lung windows on PACS and/or independent workstation with automated measurement of minimum and maximum diameter. Nodule measurement reported as average diameter rounded to the nearest whole number. Growth is defined as an increase ins size of greater than 1.5 mm. COMPARISON: 08/20/2020. NODULES: Total lung nodules (excluding granulomas): 0 Emphysema: Diffuse emphysematous changes lungs. Endobronchial lesion: None Aorta: Single atherosclerotic changes of the aorta without aneurysm. Coronary arteries: Normal Heart: Normal Pulmonary artery: Normal Mediastinal nodes: Stable nonspecific mediastinal lymphadenopathy. Other chest and abdominal findings: Degenerative changes of the thoracic spine CT/Low Dose CT Lung Screening IMPRESSION: Lung-RADS category 1 - Continue annual screening with LDCT in 12 months. IMPORTANT NOTES FOR USE: ACR Lung-RADS Version 1.1 Assessment Categories Release Date: 2018 Category: Coded 0-4 bases on nodule(s) with highest degree of suspicion. Negative screen is defined as categories 1 and 2; a positive screen is defined as categories 3 and 4. Category 3 and 4A nodules that are unchanged on interval CT should be coded as category 2, and individuals returned to screening in 12 months. Category 4X: Category 3 or 4 nodules with additional imaging findings that increase the suspicion of lung cancer, such as spiculation, GGN that doubles in size in 1 year, enlarged lymph notes, etc. Category Modifiers: S (significant finding unrelated to lung cancer) Electronically Signed: Reynaldo Hernandez DO at 22:51 EST Reading Location ID and State: [id number] Tel [phone], Service support ,
== END 2021-12-16 23:59 | disposition home or self-care (01) ==
PROVIDERS: PCP Family Medicine; Visit Provider Nurse Practitioner Acute Care
DX: F17.210 Nicotine dependence, cigarettes, uncomplicated (principal)
CPT/HCPCS: 71271

== ENCOUNTER → 2022-12-17 | Outpatient (CLI) | payer MEDICARE, SELFPAY ==
--- NOTE | 2022-12-17 07:48 | CT_ITS ---
STUDY: LOW DOSE CT LUNG CANCER SCREENING REASON FOR EXAM: Male, 62 years old. Current smoker. 45 pack-year history. Hypertension, asthma, emphysema and COPD. RADIATION DOSAGE (If Supplied By Facility): CTDIvol = ( 2.01 ) mGy, DLP = ( 72.23 ) mGycm TECHNIQUE: No contrast was administered. Low dose technique was utilized (average mAS-38 and kVp 120). 1.25 mm axial source images with a slice interval of 1.25-mm were reconstructed in lung windows. 2.5 mm axial source images with a slice interval of 2.5-mm were reconstructed in lung windows. 5.0 mm axial source images with a slice interval of 5.0-mm were reconstructed in soft tissue windows. COMPARISON: December 16, 2021 NODULES: Total lung nodules (excluding granulomas): 0 Emphysema: Diffuse emphysematous changes lungs. Area of linear scarring in the posterior right upper lobe. Linear scarring is also again seen in the lingula. Endobronchial lesion: None Aorta: Stable atherosclerotic changes. CORONARY ARTERIES: Coronary artery calcification is not seen. Heart: Normal Pulmonary artery: Normal Mediastinal nodes: Stable nonspecific subcentimeter lymphadenopathy. Other chest and abdominal findings: Degenerative changes of the thoracic spine. CT/Low Dose CT Lung Screening IMPRESSION: Lung-RADS category 1 - Continue annual screening with LDCT in 12 months. IMPORTANT NOTES FOR USE: ACR Lung-RADS Version 1.1 Assessment Categories Release Date: 2018 Category: Coded 0-4 bases on nodule(s) with highest degree of suspicion. Negative screen is defined as categories 1 and 2; a positive screen is defined as categories 3 and 4. Category 3 and 4A nodules that are unchanged on interval CT should be coded as category 2, and individuals returned to screening in 12 months. Category 4X: Category 3 or 4 nodules with additional imaging findings that increase the suspicion of lung cancer, such as spiculation, GGN that doubles in size in 1 year, enlarged lymph notes, etc. Category Modifiers: S (significant finding unrelated to lung cancer) Electronically Signed: Reynaldo Hernandez DO at 16:48 EST Reading Location ID and State: [facility] / [place] Tel [phone], Service support ,
== END | disposition home or self-care (01) ==
LOC: CT 07:48
PROVIDERS: PCP Family Medicine; Visit Provider Nurse Practitioner Acute Care
DX: F17.210 Nicotine dependence, cigarettes, uncomplicated (principal)
CPT/HCPCS: 71271

== ENCOUNTER → 2024-01-12 | Outpatient (CLI) | payer MEDICARE, SELFPAY ==
--- NOTE | 2024-01-12 08:42 | RAD_ITS ---
STUDY: X-RAY - ESOPHAGUS (BARIUM SWALLOW) WITH FLUOROSCOPY REASON FOR EXAM: Male, 63 years old. DYSPHAGIA TECHNIQUE: 16 view(s) of the esophagus were obtained following swallowing of barium. FLUOROSCOPY TIME (if supplied): (28 seconds) minutes/seconds. 8.92 mGy. COMPARISON: None. FINDINGS: There is no demonstrated esophageal foreign body. There is no demonstrated stricture or mucosal abnormality. Normal gastroesophageal junction, without a demonstrated hiatal hernia. The patient ingested a 12 mm tablet of barium without any difficulty. There is atherosclerotic calcification of the aortic arch with tortuosity of the descending aorta. Normal visualized pulmonary parenchyma. Normal visualized osseous structures of the thorax. RAD/Esophagus Dual Contrast IMPRESSION: Normal plain film x-ray examination (barium swallow) of the esophagus. Electronically Signed: Henry Dan MD at 9:26 EDT ,
== END | disposition home or self-care (01) ==
LOC: RAD 08:40
PROVIDERS: PCP Nurse Practitioner Family; Referring Provider Otolaryngology Otolaryngology/Facial Plastic Surgery; Visit Provider Otolaryngology Otolaryngology/Facial Plastic Surgery
DX: R13.14 Dysphagia, pharyngoesophageal phase (principal)
CPT/HCPCS: 74221

== ENCOUNTER → 2024-01-13 | Outpatient (CLI) | payer MEDICARE, SELFPAY ==
--- NOTE | 2024-01-13 12:47 | CT_ITS ---
STUDY: LOW DOSE CT LUNG CANCER SCREENING REASON FOR EXAM: Male, 63 years old. Smoker. Patient smoked one half pack per day for 47 years. COPD. RADIATION DOSAGE (If Supplied By Facility): CTDIvol = ( 3.02 ) mGy, DLP = ( 107.22 ) mGycm TECHNIQUE: No contrast was administered. Low dose technique was utilized (average mAS-38 and kVp 120). 1.25 mm axial source images with a slice interval of 1.25-mm were reconstructed in lung windows. 2.5 mm axial source images with a slice interval of 2.5-mm were reconstructed in lung windows. 5.0 mm axial source images with a slice interval of 5.0-mm were reconstructed in soft tissue windows. COMPARISON: Comparison is made with prior study of December 17, 2022. NODULES: No suspicious nodules are seen. Emphysema: Hyperinflation. Emphysematous changes. Linear scarring in the posterior right upper lobe. Linear scarring is also seen in the lingular segment of the left upper lobe. Endobronchial lesion: None Aorta: Mild atherosclerotic plaque formation of the aortic arch. CORONARY ARTERIES: Coronary artery calcification is not seen. Heart: Unremarkable Pulmonary artery: Unremarkable Mediastinal nodes: Unremarkable Other chest and abdominal findings: CT/Low Dose CT Lung Screening IMPRESSION: Lung-RADS category 2 - Continue annual screening with LDCT in 12 months. IMPORTANT NOTES FOR USE: ACR Lung-RADS Version 1.1 Assessment Categories Release Date: 2018 Category: Coded 0-4 bases on nodule(s) with highest degree of suspicion. Negative screen is defined as categories 1 and 2; a positive screen is defined as categories 3 and 4. Category 3 and 4A nodules that are unchanged on interval CT should be coded as category 2, and individuals returned to screening in 12 months. Category 4X: Category 3 or 4 nodules with additional imaging findings that increase the suspicion of lung cancer, such as spiculation, GGN that doubles in size in 1 year, enlarged lymph notes, etc. Category Modifiers: S (significant finding unrelated to lung cancer) Electronically Signed: Henry Dan MD at 8:40 EDT ,
== END | disposition home or self-care (01) ==
LOC: CT 12:46
PROVIDERS: PCP Nurse Practitioner Family; Referring Provider Nurse Practitioner Acute Care; Visit Provider Nurse Practitioner Acute Care
DX: F17.210 Nicotine dependence, cigarettes, uncomplicated (principal)
CPT/HCPCS: 71271

== ENCOUNTER → 2024-02-03 | Outpatient (CLI) | payer MEDICARE, SELFPAY ==
--- NOTE | 2024-02-03 17:40 | US_ITS ---
EXAM: US SCROTUM CLINICAL INDICATION: PAIN, SWELLING TECHNIQUE: Realtime ultrasound of the testicles was performed with grayscale and Color Doppler analysis. COMPARISON: No relevant prior studies available. FINDINGS: RIGHT TESTICLE: Right testicle measures 2.7 x 3.8 x 2.5 cm. Normal in size and echotexture. No focal lesion. Normal blood flow is present. LEFT TESTICLE: The left testicle measures 2.0 x 4.3 x 1.9 cm. Normal in size and echotexture. No focal lesion. Normal blood flow is present. EPIDIDYMIDES: The right epididymal head measures 8 x 8 x 5 mm. The left epididymal head measures 8.9 x 11 mm. Normal color Doppler flow pattern in the epididymis. SCROTUM: There is a large right-sided hydrocele. No varicocele. US/Testicular with Arterial Flow IMPRESSION: Large right-sided hydrocele. No other abnormalities are identified. There is no evidence of torsion. Electronically Signed: Armin Marquis MD at 19:10 EDT ,
== END | disposition home or self-care (01) ==
LOC: US 17:38
PROVIDERS: PCP Nurse Practitioner Family; Visit Provider Nurse Practitioner Family
DX: N50.811 Right testicular pain (principal); N50.89 Other specified disorders of the male genital organs
CPT/HCPCS: 76870; 93976

== ENCOUNTER → 2024-02-03 | Outpatient (CLI) | payer MEDICARE, SELFPAY | END | disposition home or self-care (01) | LOC: BFHLAB 14:42 | PROVIDERS: PCP Nurse Practitioner Family; Visit Provider Nurse Practitioner Family | DX: N39.0 Urinary tract infection, site not specified (principal) | CPT/HCPCS: 87086 ==

== ENCOUNTER → 2024-08-22 | Outpatient (CLI) | payer MEDICARE, SELFPAY ==
[2024-08-22 15:14] LABS: Absolute Lymphocyte Count 1.25 X10^3/uL (0.83-4.51); Absolute Neutrophil Count 4.3 X10^3/uL (2.0-7.7); Basophil# 0.05 X10^3/uL; Basophil% 0.8 % (0-1); Eosinophil# 0.07 X10^3/uL; Eosinophils% 1.1 % (0-5); Hematocrit 45.3 % (40-54); Hemoglobin 14.8 g/dL (13.0-16.5); Lymphocyte # 1.25 X10^3/ul (0.83-4.51); Lymphocyte % 19.9 % (19-41); Mean Corp Hgb Conc 32.7 g/dL (32-36); Mean Corpuscular Volume 91.9 fL (80-94); Monocyte# 0.59 X10^3/uL; Monocyte% 9.4 % (0-10); NRBC Flagged by Analyzer 0 % (0-5); Neutrophil # 4.29 X10^3/uL (2.7-7.7); Neutrophil % 68.5 % (47-70); Platelet Count 312 K/mm3 (150-450); RBC Distribution Width CV 12.8 % (11.6-14.6); RBC Distribution Width SD 42.9 fl (35.1-43.9); Red Blood Count 4.93 M/mm3 (4.6-6.2); White Blood Count 6.3 K/mm3 (4.4-11.0)
[2024-08-22 15:33] LABS: ALB/GLOB Ratio 0.9 RATIO (0.9-2.4); AST(SGOT) 19 U/L (15-37); Alanine Aminotransfer ALT/SGPT 29 U/L (16-61); Albumin, Serum 3.6 g/dL (3.2-5.0); Alkaline Phosphatase 79 U/L (45-117); Anion Gap 5 (5-15); BUN 10 mg/dL (7-18); BUN/Creat Ratio 12.1 RATIO (10-20); Calcium,Total 9.3 mg/dL (8.5-10.1); Chloride 105 mmol/L (98-107); Cholesterol 218 mg/dL (200); Creatinine, Serum 0.82 mg/dL (0.70-1.30); EST Glomerular Filtration Rate 99 mL/min (>60); Est Glom Filt Rate - Afr Amer 120 mL/min (>60); Globulin 4.1 g/dL (2.2-4.2); Glucose 93 mg/dL (74-106); High Density Lipoprotein 63 mg/dL; PSA,Total - Annual Screen 0.93 ng/mL (0.00-4.00); Potassium 4.4 mmol/L (3.5-5.1); Protein, Total 7.7 g/dL (6.4-8.2); Sodium Level 138 mmol/L (136-145); Triglycerides 158 mg/dL; Very Low Density Lipoprotein 32 mg/dL (5-40)
== END | disposition home or self-care (01) ==
LOC: BFHLAB 11:02
PROVIDERS: PCP Nurse Practitioner Family; Referring Provider Nurse Practitioner Family; Visit Provider Nurse Practitioner Family
DX: E55.9 Vitamin D deficiency, unspecified (principal); E78.5 Hyperlipidemia, unspecified; I10 Essential (primary) hypertension; Z12.5 Encounter for screening for malignant neoplasm of prostate
CPT/HCPCS: 36415; 80053; 80061; 82306; 84153; 85025; G0103

== ENCOUNTER → 2025-01-14 | Outpatient (CLI) | payer MEDICARE, SELFPAY ==
--- NOTE | 2025-01-14 14:15 | CT_ITS ---
PROCEDURE: LOW DOSE CT LUNG SCREENING 01/14/2025 REASON FOR EXAM: H/O TOBACCO DEPENDENCY TECHNIQUE: Low Dose CT Lung screening without contrast. Coronal and Sagittal reformats were generated. One or more dose reduction techniques were used (e.g., Automated exposure control, adjustment of the mA and/or kV according to patient size, use of iterative reconstruction technique). REFERENCE LINK: [employer] Lung-RADS RADIATION DOSE SUMMARY: CTDlvol: 1.59 mGy DLP: 58.98 mGycm COMPARISON: None. FINDINGS: Note that evaluation of the vasculature, horacio, and soft tissues is limited in the absence of IV contrast. Heart/pericardium:Trace aortic annular calcification. No appreciable calcific coronary atherosclerosis. Aorta: Trace to mild calcific atherosclerosis. Pulmonary arteries: Normal in caliber. Lymph nodes: Subcentimeter mediastinal and axillary nodes.. Lungs/pleura: Emphysema. Mild atelectasis/scarring. 3 mm RIGHT lower lobe nodule (series 2, image 199). 4 mm LEFT lower lobe nodule (image 184). Airways: Unremarkable. Chest wall: Unremarkable. Upper abdomen: Suboptimally evaluated, grossly unremarkable. Musculoskeletal: Mild scoliosis. Lower cervical predominant spondylosis. Degenerative changes of the RIGHT shoulder.. CT/Low Dose CT Lung Screening IMPRESSION: 1. Lung-RADS category: 2 (benign appearance or behavior, <1% chance of malignan cy); continue annual screening with LDCT. 2. Other clinically significant or potentially significant non-lung cancer find ings: None. 3. Additional description as above. Recommendations per [employer]. Lung CT Screening Reporting and Data System (Lung-RADS) v. 2022 Reading Location: [id number]
== END | disposition home or self-care (01) ==
LOC: CT 13:49
PROVIDERS: PCP Nurse Practitioner Family; Referring Provider Internal Medicine Critical Care Medicine; Visit Provider Internal Medicine Critical Care Medicine
DX: Z87.891 Personal history of nicotine dependence (principal)
CPT/HCPCS: 71271

== ENCOUNTER → 2025-06-21 | Outpatient (CLI) | payer MEDICARE, SELFPAY ==
--- NOTE | 2025-06-21 11:03 | RAD_ITS ---
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 RAD/Chest PA and Lateral IMPRESSION: Lungs are moderately severely hyperinflated with increased interstitial marking s, most consistent with a significant degree of chronic lung disease. No focal infiltrate is clearly appreciated. No pleural effusion or pneumothorax is seen. The cardiomediastinal silhouette is stable, without evidence of cardiomegaly. A mildly calcified aorta is seen. [id number] thoracic spine degenerative changes are seen. No acute osseous change is evident. Reading Location: [place] [id number]
== END | disposition home or self-care (01) ==
LOC: MTRAD 11:02
PROVIDERS: PCP Nurse Practitioner Family; Referring Provider Nurse Practitioner Family; Visit Provider Nurse Practitioner Family
DX: R06.02 Shortness of breath (principal); J44.9 Chronic obstructive pulmonary disease, unspecified; R05.9 Cough, unspecified
CPT/HCPCS: 71046

== ENCOUNTER → 2025-07-10 | Outpatient (CLI) | payer MEDICARE, SELFPAY | END | disposition home or self-care (01) | PROVIDERS: PCP Nurse Practitioner Family; Referring Provider Nurse Practitioner Acute Care; Visit Provider Nurse Practitioner Acute Care | DX: J44.9 Chronic obstructive pulmonary disease, unspecified (principal) | CPT/HCPCS: 94060; 94726; 94729 ==

== ENCOUNTER → 2025-07-16 | Outpatient (CLI) | payer MEDICARE, SELFPAY ==
[2025-07-16 14:12] VITALS: PULSE 60; PULSE 83; PULSE 86; PULSE 87; PULSE 88; PULSE 89; PULSE 90; O2SAT 88; O2SAT 89; O2SAT 90; O2SAT 92; O2SAT 93; O2SAT 95
--- NOTE | 2025-07-18 08:17 | PCM.PSN.6M ---
PSN 6 Minute Walk Test 6 Minute Walk Test 6 Minute Walk Test: 6 Minute Walk Test PSN:6-Minute Walk Test Start: 07/16/25 14:12 Freq: Status: Active Protocol: [id number] Document 07/16/25 14:12 THAI (Rec: 07/16/25 14:14 THAI [id number]) 6 Minute Walk Test Date Performed 07/16/25 Time Performed 13:00 Height 5 ft 6 in Weight: 180 lb Weight in Pounds 180.[address]: María Elena Israel [employer] Assistive device None used: Pre-test Oxygen Delivery Room Air Method Pulse Ox (%) 92 Pulse Rate (60-100 83 beats/min) Dyspnea Imelda Scale ( 0 0-10) Exertion Imelda Scale 6 (6-20) 1st minute Oxygen Delivery Room Air Method Pulse Ox (%) 93 Pulse Rate (60-100 89 beats/min) 2nd minute Oxygen Delivery Room Air Method Pulse Ox (%) 89 Pulse Rate (60-100 90 beats/min) 3rd minute Oxygen Delivery Room Air Method Pulse Ox (%) 89 Pulse Rate (60-100 86 beats/min) 4th minute Oxygen Delivery Room Air Method Pulse Ox (%) 90 Pulse Rate (60-100 88 beats/min) 5th minute Oxygen Delivery Room Air Method Pulse Ox (%) 89 Pulse Rate (60-100 87 beats/min) 6th minute Oxygen Delivery Room Air Method Pulse Ox (%) 88 Pulse Rate (60-100 90 beats/min) Dyspnea Imelda Scale ( 1 0-10) Exertion Imelda Scale 12 (6-20) Post-test Oxygen Delivery Room Air Method Pulse Ox (%) 95 Pulse Rate (60-100 60 beats/min) Full Laps Walked 19 Partial Lap, Number 0 of Tiles Walked Total Distance 1121 Walked (ft) Interpretation Interpretation: The patient ambulated 1121 feet over the course of 6 minutes beginning on room air without assistive devices. Pretesting oxygen saturation was noted to be 92% on room air. With ambulation, the pocnho oxygen saturation was 88% at minute 6 of testing. This represents a significant exertional oxygen desaturation, consistent with a pulmonary limitation to exercise tolerance. Recommendations Recommendations: Close interval follow-up was recommended, given the degree of oxygen desaturation noted during this study.
== END | disposition home or self-care (01) ==
LOC: PSN 12:55
PROVIDERS: PCP Nurse Practitioner Family; Referring Provider Nurse Practitioner Acute Care; Visit Provider Nurse Practitioner Acute Care
DX: J44.9 Chronic obstructive pulmonary disease, unspecified (principal)
CPT/HCPCS: 94618

== ENCOUNTER → 2025-08-26 | Outpatient (CLI) | payer MEDICARE, SELFPAY ==
[2025-08-26 12:35] LABS: Hematocrit 43.2 % (40-54); Hemoglobin 14.3 g/dL (13.0-16.5); Immature Granulocytes Count 0.040 X10^3/uL (0.0-0.0); Mean Corp Hgb Conc 33.1 g/dL (32-36); Mean Corpuscular Volume 93.5 fL (80-94); Mean Platelet Vol. 9.8 fl (6.2-12.0); NRBC Flagged by Analyzer 0 % (0-5); Platelet Count 322 K/mm3 (150-450); RBC Distribution Width CV 12.6 % (11.6-14.6); RBC Distribution Width SD 43.4 fl (35.1-43.9); Red Blood Count 4.62 M/mm3 (4.6-6.2); White Blood Count 8.4 K/mm3 (4.4-11.0)
--- OUTSIDE RECORDS SUMMARY | 2025-08-26 12:35 | XMS RPT_ITS | CCD ---
Author Organization [facility] Care Team Providers Care Business Administration Instructor Name Role Phone Sarath Solis Unavailable Unavailable Sarath Solis Unavailable Unavailable Sarath Solis Unavailable Unavailable Sarath Solis Primary Care Provider Kady RUG REPAIRER, [place] Primary Care Provider KADY, DIO Primary Care Unavailable RAQUEL VALENZUELA Attending UnavailDr. Sarath Salvador Referring Provider Dr. Omkar Carrion Attending Provider [phone] Kady, RUG REPAIRER-C Dio Primary Care Provider Kady RUG REPAIRER-C, [place] Primary Care Provider Dr. Omkar Carrion DO Attending Provider Dr. Omkar Carrion DO Referring Provider Kady RUG REPAIRER-C, [place] Primary Care Physician Kady RUG REPAIRER-C, [place] Attending Physician [phone] Kady RUG REPAIRER-C, Dio Referring Provider Omkar Carrion Attending Unavailable Omkar Carrion Referring Unavailable Kady, Dio Primary Care Unavailable Kady, Dio Primary Care Unavailable Kady, Dio Attending Unavailable Kady, Dio Referring Unavailable Israel RUG REPAIRERMaría Elena Attending Unavailable Kady, Dio Referring Unavailable Kady, Dio Primary Care Unavailable Israel RUG REPAIRER, María Elena Referring Unavailable Kady, Dio Primary Care Unavailable Omkar Carrion Attending Unavailable Jhonatan RUG REPAIRER, María Elena Consulting Unavailable Israel RUG REPAIRER, María Elena Referring Unavailable Kady, Dio Primary Care Unavailable Israel RUG REPAIRER, María Elena Attending Unavailable Israel RUG REPAIRER, María Elena Attending Unavailable Israel RUG REPAIRER, María Elena Referring Unavailable Dio Lemus Primary Care Unavailable Dio Lemus Attending Unavailable Dio Lemus Referring Unavailable Dio Lemus Primary Care Unavailable Allergies Allergy Classification Reported Allergen(s) Allergy Type Date of Onset Reaction(s) Facility (1 source) Grass pollen Drug allergy (disorder) 01-30-2025 [facility] Repository Medications Current Medications Medication Drug Class(es) Dates Sig (Normalized) Sig (Original) amLODIPine 10 mg oral tablet (17 sources) Dihydropyridine Calcium Channel Darrell Start: 01-30-2025 take 1 tablet by mouth once daily Start: 12-09-2021 End: 01-30-2025 take 2 tablets by mouth once daily Amlodipine 5 mg tablet Discontinued 10 mg PO DAILY December 09, 2021 8:51am January 30, 2025 3:26pm Start: 12-09-2021 take 10 mg by mouth once daily Amlodipine Active 10 MG PO DAILY December 09, 2021 8:51am Start: 01-24-2019 End: 12-09-2021 take 1 tablet by mouth once daily Amlodipine 5 mg tablet Discontinued 5 mg PO DAILY January 24, 2019 12:00am December 09, 2021 8:52am Comment on above: 5 mg. aspirin 81 mg delayed release oral tablet (9 sources) Platelet Aggregation Inhibitor, Nonsteroidal Anti-inflammatory Drug Start: 06-01-2019 take 1 tablet by mouth once daily Comment on above: 81 mg. atenolol 50 mg oral tablet (9 sources) beta-Adrenergic Darrell Start: 01-24-2019 take 1 tablet by mouth once daily cholecalciferol 0.05 mg oral tablet (9 sources) Vitamin D Start: 02-22-2019 take 2 tablets by mouth once daily Start: 02-22-2019 take 4000 [IU] by [facility] once daily Cholecalciferol (Vitamin D3) Active 4000 UNIT PO DAILY February 22, 2019 12:00am Comment on above: Take by mouth. Arfijjbubvy-Hekkxsgqt-Pptnwo er (15 sources) Start: 01-30-2025 Start: 06-12-2024 End: 01-30-2025 Msfkbuomgho-Wiaalbpqk-Iiquvi er (Trelegy Ellipta) 200-62.5-25 mcg blister with device Discontinued 1 NMA INHALATION DAILY 60 6 June 12, 2024 11:50am January 30, 2025 3:39pm Cigarette nicotine dependence without complication Nicotine dependence, cigarettes, uncomplicated Start: 06-12-2024 Fluticasone-Um eclidin-Vilanter (Trelegy Ellipta) 200-62.5-25 mcg blister with device Active 1 NMA INHALATION DAILY 60 June 12, 2024 11:50am Start: 10-14-2023 End: 06-12-2024 Qujtrcacvwz-Qkxrucbqm-Oudfjs er (Trelegy Ellipta) 200-62.5-25 mcg blister with device Discontinued 1 NMA INHALATION DAILY 60 October 14, 2023 12:05pm June 12, 2024 11:50am Cigarette nicotine dependence without complication Nicotine dependence, cigarettes, uncomplicated Start: 10-14-2023 End: 06-12-2024 Hdzizpikkdx-Ezpmfckmh-Ypvzlp er (Trelegy Ellipta) 200-62.5-25 mcg blister with device Discontinued 1 NMA INHALATION DAILY 60 October 14, 2023 12:05pm June 12, 2024 11:50am Start: 10-14-2023 Fluticasone-Um eclidin-Vilanter (Trelegy Ellipta) 200-62.5-25 mcg blister with device Active 1 INH INHALATION DAILY October 14, 2023 12:05pm Start: 01-19-2023 End: 10-14-2023 Xyskelwttld-Avnpvyaon-Rragid er (Trelegy Ellipta) 200-62.5-25 mcg blister with device Discontinued 1 NMA INHALATION DAILY 60 January 19, 2023 12:00am October 14, 2023 12:05pm Cigarette nicotine dependence without complication Nicotine dependence, cigarettes, uncomplicated Start: 01-19-2023 End: 10-14-2023 Wohdczxtbjy-Vbzbckuta-Pigzhg er (Trelegy Ellipta) 200-62.5-25 mcg blister with device Discontinued 1 NMA INHALATION DAILY 60 January 19, 2023 12:00am October 14, 2023 12:05pm Start: 01-19-2023 End: 10-14-2023 Kgvtaqjgtpb-Dfgqwcfjb-Gxbdgx er (Trelegy Ellipta) 200-62.5-25 mcg blister with device Discontinued 1 INH INHALATION DAILY January 193 12:00am October 14, 2023 12:05pm meloxicam 15 mg oral tablet (1 source) Nonsteroidal Anti-inflammatory Drug Start: 01-30-2025 take 1 tablet by mouth once daily omeprazole 20 mg delayed release oral capsule (16 sources) Proton Pump Inhibitor Start: 05-29-2019 End: 07-04-2019 take 1 capsule by mouth once daily predniSONE 10 mg oral tablet (13 sources) Start: 01-30-2025 take 1 tablet by mouth once daily as needed Start: 07-20-2023 End: 01-31-2024 Prednisone 10 mg tablet Disc ontinued 10 mg PO daily 30 0 October 14, 2023 12:04pm January 31, 2024 10:38am take 4 tabs for three days, then 3 tabs for three days, then 2 tabs for three days, then 1 tab for 3 days rosuvastatin calcium 5 mg oral tablet (20 sources) HMG-CoA Reductase Inhibitor Start: 12-09-2021 take 2 tablets by mouth once daily Start: 12-09-2021 take 10 mg by mouth once daily Rosuvastatin Active 10 MG PO DAILY December 09, 2021 8:51am Start: 12-13-2019 End: 12-09-2021 take 1 tablet by mouth once daily Rosuvastatin 5 mg tablet Discontinued 5 mg PO DAILY December 13, 2019 1:00am December 09, 2021 8:52am Start: 12-13-2019 End: 12-13-2019 take 1 capsule by mouth once daily Rosuvastatin 5 mg capsule, sprinkle Discontinued 5 mg PO DAILY December 13, 2019 1:00am December 13, 2019 10:48am Start: 01-24-2019 End: 06-26-2019 take 1 tablet by mouth once daily Rosuvastatin 5 mg tablet Discontinued 5 mg PO DAILY June 01, 2019 10:05am June 26, 2019 8:50am Comment on above: Take 5 mg by mouth o nce daily. tamsulosin hydrochloride 0.4 mg oral capsule (10 sources) alpha-Adrenergic Darrell Start: 01-30-2025 take 1 capsule by mouth once daily Start: 06-10-2020 End: 06-24-2021 take 1 capsule by mouth at bedtime Tamsulosin 0.4 MG capsule Discontinued 0.4 mg PO AT BEDTIME June 10, 2020 12:00am June 24, 2021 9:03am Comment on above: Take by mouth. Vitamin B Complex (B Complex -Vitamin B12) tablet (7 sources) Start: 07-21-2022 Start: 07-21-2022 Vitamin B Comp michelle (B Complex-Vitamin B12) tablet Active 1 {tbl} PO DAILY July 21, 2022 12:00am Start: 07-21-2022 take 1 tablet by floresita th once daily Vitamin B Complex (B Complex-Vitamin B12) tablet Active 1 TABLET PO DAILY July 21, 2022 12:00am Completed/Discontinued Medications Medication Drug Class(es) Dates Sig (Normalized) Sig (Original) acetaminophen 325 mg / oxyCODONE hydrochloride 5 mg oral tablet (7 sources) Opioid Agonist Start: 03-01-2019 End: 03-06-2019 Oxycodone-Acetaminoph en 1 TABLET tablet Discontinued 1 {tbl} PO TWICE DAILY NEEDED as needed for Pain 10 5 0 March 01, 2019 9:20am March 05, 2019 12:00am March 06, 2019 12:07am Other acute postprocedural pain 10 tabs (ten) Start: 03-01-2019 End: 03-06-2019 take 1 tablet by mouth twice daily as needed Oxycodone-Acetaminophen Discontinued 1 TABLET PO TWICE DAILY NEEDED 10 5 March 01, 2019 9:20am March 06, 2019 12:07am 10 tabs (ten) [id number] 200 actuat albuterol 0.09 mg/actuat metered dose inhaler (20 sources) beta2-Adrenergic Agonist Start: 06-11-2020 End: 05-28-2022 Albuterol Sulfate 90 mcg/actuation HFA aerosol inhaler Discontinued 2 NMA INHALATION Q4H as needed for shortness of breath or wheezing 10 20December 09, 2020 10:05am May 28, 2022 10:46am administer with spacer Start: 06-11-2020 End: 05-28-2022 take 1 puff(s) by inhalation every four hours Albuterol Sulfate Discontinued 2 PUFF INHALATION Q4H December 09, 2020 10:05am May 28, 2022 10:46am administer with spacer Start: 02-13-2019 ALBUTEROL INHA LATION Albuterol Albuterol Ih (Proair) Active 1 - 2 PUFF EVERY 4 HOURS NEEDED February 13, 2019 2:15pm 02-13-2019 [facility] ([id number]) 0 02/13/2019 Active Comment on above: Albuterol Albuterol Ih (Proair) Active 1 - 2 PUFF EVERY 4 HOURS NEEDED February 13, 2019 2:15pm 02-13-2019 [facility] ([id number]) amoxicillin 875 mg / clavulanate 125 mg oral tablet (7 sources) Penicillin-class Antibacterial Start: 10-08-20 End: 12-13-19 Amoxicillin-Pot Clavulanate (Augmentin) 875-125 mg tablet Discontinued 1 {tbl} PO TWICE A DAY 10 October 08, 2019 1:00am December 13, 2019 10:50am atorvastatin 40 mg oral tablet (2 sources) HMG-CoA Reductase Inhibitor Start: 11-12-19 LIPITOR 40 MG TAB Take one(1) tablet daily. 0 11/12/2005 Active Comment on above: Take one(1) tablet d aily. azithromycin 250 mg oral tablet (12 sources) Macrolide Antimicrobial Start: 07-20-20 End: 01-31-20 take 2-5 tablets by mouth once daily Azithromycin 250 mg tablet Discontinued 0 PO .COMPLEX 6 0 October 14, 2023 12:04pm January 31, 2024 10:37am take 500 mg today (day 1), then 250 mg for 4 days (days 2-5) PO clindamycin 300 mg oral capsule (7 sources) Lincosamide Antibacterial Start: 03-01-20 End: 05-29-20 take 1 capsule by mouth three times daily Clindamycin Hcl 300 MG capsule Discontinued 300 mg PO THREE TIMES A DAY 9 March 01, 2019 12:00am May 29, 2019 10:16am clopidogrel 75 mg oral tablet (14 sources) [id number] Platelet Inhibitor Start: 06-25-20 End: 07-04-20 take 1 tablet by mouth once daily Clopidogrel (Plavix) 75 mg tablet Discontinued 75 mg PO DAILY 30 June 25, 2019 9:42am July 04, 2019 1:50pm gemfibrozil 600 mg oral tablet (7 sources) Peroxisome Proliferator Receptor alpha Agonist Start: 07-04-20 End: 12-13-19 take 1 tablet by mouth twice daily Gemfibrozil 600 mg tablet Discontinued 600 mg PO TWICE A DAY 60 July 04, 2019 12:00am December 13, 2019 10:49am 12 hr guaiFENesin 1200 mg extended release oral tablet (6 sources) Start: 07-20-20 End: 01-31-20 take 1 tablet by mouth every twelve hours Guaifenesin 1,200 mg tablet extended release 12hr Discontinued 1200 mg PO Q12H 60 6 July 20, 2023 12:00am January 31, 2024 10:38am Start: 07-20-2023 End: 01-31-2024 take 1200 mg by mouth every twelve hours Guaifenesin Discontinued 1200 MG PO Q12H 60 July 20, 2023 12:00am January 31, 2024 10:38am hydroCHLOROthiazide 12.5 mg oral capsule (2 sources) Thiazide Diuretic Start: 11-12-2005 HYDROCHLOROTHIAZIDE 12.5 MG CAP Take one(1) tablet daily. 0 11/12/2005 Active Comment on above: Take one(1) tablet d aily. hydroCHLOROthiazide 12.5 mg / losartan potassium 50 mg oral tablet (7 sources) Thiazide Diuretic, Angiotensin 2 Receptor Darrell Start: 07-04-2019 End: 12-13-2019 Losartan-Hydrochlorothiaz new (Hyzaar) 50-12.5 mg tablet Discontinued 1 {tbl} PO DAILY 30 July 04, 2019 12:00am December 13, 2019 10:51am imiquimod 50 mg/ml topical cream (14 sources) Start: 03-23-2019 End: 05-04-2019 Imiquimod (Aldara) 5 % cream in packet Discontinued 1 NMA TOPICAL 5 times per week 30 42 0 March 23, 2019 12:00am May 03, 2019 12:00am May 04, 2019 12:08am Start: 01-26-2019 End: 01-26-2019 Imiquimod (Aldara) 5 % cream in packet Discontinued 1 NMA TOPICAL 5 times per week 24 42 0 January 26, 2019 12:00am March 08, 2019 12:00am January 26, 2019 6:47pm 24 hr metoprolol succinate 50 mg extended release oral tablet (2 sources) beta-Adrenergic Darrell Start: 11-12-2005 TOPROL XL 50 MG 24 HR TAB Take one(1) tablet daily. 0 11/12/2005 Active Comment on above: Take one(1) tablet d chrisy. Nicotine (7 sources) Cholinergic Nicotinic Agonist Start: 01-24-2019 End: 06-01-2019 Nicotine 21-14-7 mg/24 hr patch, TD daily, sequential Discontinued 1 NMA TD Q24H January 24, 2019 12:00am June 01, 2019 10:03am Start: 01-24-2019 End: 06-01-2019 apply 1 dose transdermal route every twenty-four hours Nicotine Discontinued 1 PATCH TD Q24H January 24, 2019 12:00am June 01, 2019 10:03am Tiotropium-Olodaterol (20 sources) Anticholinergic, beta2-Adrenergic Agonist Start: 06-10-2020 End: 12-09-2021 Tiotropium-Olodaterol 4 GM mist Discontinued 2 NMA INHALATION NEEDED as needed for Sob &/Or Wheezing June 10, 2020 10:44am December 09, 2021 9:08am Start: 06-10-2020 End: 12-09-2021 Tiotropium-Olodaterol Discon tinued 2 PUFF INHALATION NEEDED June 10, 2020 10:44am December 09, 2021 9:08am Start: 06-10-2020 End: 12-09-2021 Tiotropium-Olodaterol Discon tinued 2 PUFF INHALATION NEEDED June 10, 2020 10:44am December 09, 2021 9:08am Start: 12-13-2019 End: 06-10-2020 Tiotropium-Olodaterol 2.5-2. 5 mcg/actuation mist Discontinued 2 NMA INHALATION DAILY 4 December 13, 2019 9:44am June 10, 2020 10:44am Start: 12-13-2019 End: 06-10-2020 Tiotropium-Olodaterol 2.5-2. 5 mcg/actuation mist Discontinued 2 NMA INHALATION DAILY December 13, 2019 9:44am June 10, 2020 10:44am Start: 12-13-2019 End: 06-10-2020 take 1 puff(s) by inhalation once daily Tiotropium-Olodaterol Discontinued 2 PUFF INHALATION DAILY December 13, 2019 9:44am June 10, 2020 10:44am Start: 02-22-2019 End: 12-13-2019 take 4 g by inhalation once daily Tiotropium-Olodaterol 4 GM mist Discontinued 2 NMA IH DAILY February 22, 2019 12:00am December 13, 2019 9:44am Start: 02-22-2019 End: 12-13-2019 take 1 puff(s) by inhalation once daily Tiotropium-Olodaterol Discontinued 2 PUFF IH DAILY February 22, 2019 12:00am December 13, 2019 9:44am Start: 02-22-2019 End: 06-10-2020 take 1 puff(s) by inhalation once daily Tiotropium-Olodaterol Discontinued 2 PUFF INHALATION DAILY December 13, 2019 9:44am June 10, 2020 10:44am pravastatin sodium 80 mg oral tablet (2 sources) HMG-CoA Reductase Inhibitor take 80 mg by mouth once daily PRAVASTATIN SODIUM (PRAVASTATIN ORAL) Take 80 mg by mouth once daily. 0 Active Comment on above: Take 80 mg by mouth once daily. TRELEGY ELLIPTA 200-62.5-25 mcg inhalation powder (1 source) Start: take 1 puff(s) by inhalation once daily TRELEGY ELLIPTA 200-62.5-25 mcg inhalation powder Inhale 1 Puff as instructed once daily. 0 01/10/2024 Active Comment on above: Inhale 1 Puff as ins tructed once daily. tropicamide 5 mg/ml ophthalmic solution (1 source) Anticholinergic Start: End: tropicamide 0.5 % 1 Drop (MYDRIACYL) vitamin b12 0.5 mg oral tablet (9 sources) Vitamin B12 Start: End: take 1 tablet by mouth once daily Cyanocobalamin (Vitamin B-12) (Vitamin B-12) 500 mcg tablet Discontinued 500 ug PO DAILY January 24, 2019 12:00am June 24, 2021 9:03am Comment on above: 500 mcg. Problems Active Problems Problem Classification Problem Date Documented Date Episodic/Chronic Abdominal pain (7 sources) Abdominal pain; Translations: [Unspecified abdominal pain] 06-17-2020 Episodic Allergic reactions (7 sources) Actinic cheilitis; Translations: [Other specified acute skin changes due to ultraviolet radiation] 03-05-2019 Episodic Comment on above: left lower lip Blindness and vision defects (6 sources) Bilateral hyperopia of eyes; Translations: [Hypermetropia, bilateral] Episodic Cataract (1 source) Nuclear senile cataract; Translations: [Age-related nuclear cataract, bilateral] Chronic Chronic obstructive pulmonary disease and bronchiectasis (18 sources) Chronic obstructive lung disease; Translations: [Chronic obstructive pulmonary disease, unspecified] Onset: 08-05-2025 07-21-2022 Chronic Coronary atherosclerosis and other heart disease (7 sources) Coronary atherosclerosis; Translations: [Atherosclerotic heart disease of hoh coronary artery without angina pectoris] 06-11-2020 Chronic Disorders of lipid metabolism (8 sources) Hyperlipidemia; Translations: [Hyperlipidemia, unspecified] Onset: 09-20-2024 06-11-2020 Chronic Esophageal disorders (7 sources) Gastroesophageal reflux disease; Translations: [Gastro-esophageal reflux disease without esophagitis] 07-04-2019 Chronic Essential hypertension (7 sources) Hypertensive disorder; Translations: [Essential (primary) hypertension] 06-11-2020 Chronic Neoplasms of unspecified nature or uncertain behavior (20 sources) Neoplasm of skin of forearm; Translations: [Neoplasm of unspecified behavior of bone, soft tissue, and skin] 03-05-2019 Episodic Comment on above: 11 mm lesion dorsal aspect distal right forearm 11 mm lesion top of scalp1 cm cystic lesion right temporal scalp 6 mm lesion nasal do rsum Nonspecific chest pain (7 sources) Tight chest; Translations: [Other chest pain] 06-25-2019 Episodic Other and unspecified benign neoplasm (7 sources) History of polyp of colon; Translations: [Personal history of colonic polyps] 03-05-2019 Episodic Other connective tissue disease (7 sources) Cramp in lower limb; Translations: [Cramp and spasm] 07-04-2019 Episodic Other eye disorders (2 sources) Bilateral vitreous floaters; Translations: [Other vitreous opacities, bilateral] Onset: 12-08-2017 12-08-2017 Chronic Other injuries and conditions due to external causes (7 sources) Fracture of bone; Translations: [Other injury of unspecified body region, initial encounter] 09-03-2019 Episodic Other lower respiratory disease (7 sources) Dyspnea on exertion; Translations: [Other forms of dyspnea] 12-10-2020 Episodic Other lower respiratory disease (7 sources) Snoring; Translations: [Snoring] 07-04-2019 Episodic Other lower respiratory disease (1 source) Shortness of breath; Translations: [Shortness of breath] Onset: 07-05-2025 Episodic Other non-epithelial cancer of skin (14 sources) Malignant neoplasm of skin; Translations: [Unspecified malignant neoplasm of skin, unspecified] 09-03-2019 Episodic Other screening for suspected conditions (not mental disorders or infectious disease) (7 sources) Echocardiogram abnormal; Translations: [Abnormal result of other cardiovascular function study] 06-25-2019 Episodic Other skin disorders (7 sources) Actinic keratosis; Translations: [Actinic keratosis] 03-05-2019 Episodic Comment on above: 11 mm actinic kerato sis dorsal aspect distal right forearm. 6 mm actinic keratosis nasal dorsum. 11 mm actinic keratosis top of scalpscattered actinic damage bilateral protestant areas and forehead area Other upper respiratory disease (7 sources) Seasonal allergy; Translations: [Other seasonal allergic rhinitis] 09-03-2019 Chronic Residual codes; unclassified (7 sources) Obstructive sleep apnea syndrome; Translations: [Obstructive sleep apnea (adult) (pediatric)] 06-17-2020 Chronic Residual codes; unclassified (7 sources) Hypersomnia; Translations: [Hypersomnia, unspecified] 07-04-2019 Chronic Residual codes; unclassified (2 sources) Obstructive sleep apnea (adult) (pediatric); Translations: [Obstructive sleep apnea (adult)(pediatric)] 01-31-2024 Chronic Residual codes; unclassified (7 sources) H/O: bone tissue recipient; Translations: [Other specified postprocedural states] 09-03-2019 Episodic Comment on above: BROKEN FIBULA AND TI BULA - BONE GRAFT FROM HIP TO LEFT LEG Retinal detachments; defects; vascular occlusion; and retinopathy (1 source) Round hole of retina of right eye; Translations: [Round hole, right eye] Episodic Rheumatoid arthritis and related disease (7 sources) Rheumatoid arthritis; Translations: [Rheumatoid arthritis, unspecified] 09-03-2019 Chronic Spondylosis; intervertebral disc disorders; other back problems (4 sources) Degeneration of cervical intervertebral disc; Translations: [Other cervical disc degeneration, unspecified cervical region] Onset: 12-03-2019 12-03-2019 Chronic Spondylosis; intervertebral disc disorders; other back problems (7 sources) Back problem; Translations: [Dorsopathy, unspecified] 09-03-2019 Episodic Substance-related disorders (20 sources) Tobacco dependence in remission; Translations: [Nicotine dependence, cigarettes, in remission] Onset: 01-30-2025 07-21-2022 Chronic Comment on above: Ordered for December 27, 1/2 ppd Ordered for December 27, 3/4 ppd Past or Other Problems Problem Classification Problem Date Documented Da te Episodic/Chronic Hemorrhoids (6 sources) Internal hemorrhoids; Translations: [Other hemorrhoids] Onset: 11-12-2005 11-12-2005 Episodic Other and unspecified benign neoplasm (3 sources) Nevus of choroid of right eye; Translations: [Benign neoplasm of right choroid] Onset: 12-08-2017 Episodic Other and unspecified benign neoplasm (2 sources) Benign neoplasm of colon; Translations: [Benign neoplasm of colon, unspecified] Onset: 11-19-2005 11-19-2005 Episodic Screening and history of mental health and substance abuse codes (8 sources) Tobacco use and exposure - finding; Translations: [Personal history of nicotine dependence] Onset: 01-17-2025 09-03-2019 Episodic Comment on above: Annual low-dose CT o f the chest due August 2020 Results Test Name Value Interpretation Reference Range Facility 6 Minute Walk Teston 025 6 Minute Walk Test y [facility] [address] [place] [address] MR#: [id number] Acct: [id number] Name: DOMINGA DOMINIQUE Rep #: [id number] : [id number] 65 From: Omkar Carrion DO Referring Dr: María Elena Israel NP RUG REPAIRER-C Status: REG CLI Location: PSN Date: Sex: M C PSN 6 Minute Walk Test 6 Minute Walk Test 6 Minute Walk Test: 6 Minute Walk Test PSN:6-Minute Walk Test Start: 07/16/25 14:12 Freq: Status: Active Protocol: [id number] Document 07/16/25 14:12 THAI (Rec: 07/16/25 14:14 [email or web address] [id number]) 6 Minute Walk Test Date Performed 07/16/25 Time Performed 13:00 Height 5 ft 6 in Weight: 180 lb Weight in Pounds 180.[address]: María Elena Israel RUG REPAIRER Assistive device None used: Pre-test Oxygen Delivery Room Air Method Pulse Ox (%) 92 Pulse Rate (60-100 83 beats/min) Dyspnea Imelda Scale ( 0 0-10) Exertion Imelda Scale 6 (6-20) 1st minute Oxygen Delivery Room Air Method Pulse Ox (%) 93 Pulse Rate (60-100 89 beats/min) 2nd minute Oxygen Delivery Room Air Method Pulse Ox (%) 89 Pulse Rate (60-100 90 beats/min) 3rd minute Oxygen Delivery Room Air Method Pulse Ox (%) 89 Pulse Rate (60-100 86 beats/min) 4th minute Oxygen Delivery Room Air Method Pulse Ox (%) 90 Pulse Rate (60-100 88 beats/min) 5th minute Oxygen Delivery Room Air Method Pulse Ox (%) 89 Pulse Rate (60-100 87 beats/min) 6th minute Oxygen Delivery Room Air Method Pulse Ox (%) 88 Pulse Rate (60-100 90 beats/min) Dyspnea Imelda Scale ( 1 0-10) Exertion Imelda Scale 12 (6-20) Post-test Oxygen Delivery Room Air Method Pulse Ox (%) 95 Pulse Rate (60-100 60 beats/min) Full Laps Walked 19 Partial Lap, Number 0 of Tiles Walked Total Distance 1121 Walked (ft) Interpretation Interpretation: The patient ambulated 1121 feet over the course of 6 minutes beginning on room air without assistive devices. Pretesting oxygen saturation was noted to be 92% on room air. With ambulation, the poncho oxygen saturation was 88% at minute 6 of testing. This represents a significant exertional oxygen desaturation, consistent with a pulmonary limitation to exercise tolerance. Recommendations Recommendations: Close interval follow-up was recommended, given the degree of oxygen desaturation noted during this study. 07/18/25817 Date Omkar Carrion DO CC: Date Dictated: 07/18/25816 Date Transcribed: 07/18/25816 Fur Trimming Machine Operator: Dr. Omkar Carrion DO Signed Normal [facility] Chest PA and Lateralon 06-21 Chest PA and Lateral [facility] [address] [place], [place] [id number] Chest PA and Lateral MR#: [id number] Acct: [id number] Name: DOMINGA DOMINIQUE Rep #: [id number] : 1960 M 65 From: Sarath Maravilla PCP: MARCO Gusman Status: REG CLI Study: Chest PA and Lateral Date of Exam: 06/21/25 Exam# [id number] Ordering Dr: Dio Lemus PROCEDURE: CHEST PA AND LATERAL 06/21/2025 REASON FOR EXAM: SOB, COUGH, COPD TECHNIQUE: Procedure Code: RADCXR Modality: DX Procedure: CHEST PA AND LATERAL COMPARISON: Set Up Operator from the chest CT of 01/14/2025. RAD/Chest PA and Lateral IMPRESSION: Lungs are moderately severely hyperinflated with increased interstitial markings, most consistent with a significant degree of chronic lung disease. No focal infiltrate is clearly appreciated. No pleural effusion or pneumothorax is seen. The cardiomediastinal silhouette is stable, without evidence of cardiomegaly. A mildly calcified aorta is seen. Mkbw-re-hfpdovrh thoracic spine degenerative changes are seen. No acute osseous change is evident. Reading Location: [place] [address] CC: MARCO Lemus Fur Trimming Machine Operator: Signed Normal [facility] Pulmonary Visit Reporton Pulmonary Visit Report [facility] Pulmonary Medicine of [address] [place] [address] OFFICE VISIT Date of Service: 01/30/25 MR#: [id number] Acct: [id number] Name: DOMINGA DOMINIQUE Rep #: [id number] : 1960 Provider: MARCO Israel Age/Sex: 64/M Location: [facility].PMW Status: Signed Assessment and Plan Assessment and Plan (1) Stage 2 moderate COPD by GOLD classification: Status: Chronic Plan: Stable. He does not appear to be an exacerbation of COPD today. No need for prednisone or antibiotic. Continue current maintenance medication, on triple therapy with the use of Trelegy. He admits that recently he was having a hard time affording the Trelegy and took a little time off. He is now back on Trelegy 1 puff daily as prescribed. He was provided with 1 month supply of samples today to help. Repeating PFT and pulmonary stress test. I would prefer to repeat testing now, however the patient has financial concerns and would prefer to wait until July. Contact the office for any new or worsening symptoms. An acute visit and typically be arranged within 1-2 days. Follow-up in late July to discuss test results. (2) Seasonal allergies: Status: Chronic Plan: Stable at this time. (3) Smoking greater than 40 pack years: Status: Chronic Comment: Ordered for December 2025, 3/ ppd Plan: Continue to encourage complete smoking cessation. LDCT scan ordered for January 2026. Orders: Orders Low Dose CT Lung Screening 01/08/26 F17.200 - Nicotine dependence, unspecified, uncomplicated, F17.210 - Nicotine dependence, cigarettes, uncomplicated PFT Complete - DLCO, Spirometry b/a bronchodilators, lung volumes 07/10/25 J44.9 - Chronic obstructive pulmonary disease, unspecified Simple Pulmonary Exercise Test 07/10/25 J44.9 - Chronic obstructive pulmonary disease, unspecified Medications: Refilled rugosahhssj-wrlzqqklc-a ilanter 200-62.5-25 mcg (Trelegy Ellipta) 1 inh inhalation DAILY 60 ea 6RF F17.210 - Nicotine dependence, cigarettes, uncomplicated Plan Details Additional Comments: This note was generated with [employer] dictation software. It may contain incorrect words, spelling, and punctuation that were not noted in checking the note before signing. Follow Up: 08/05/25 ([facility]) HPI 1 Y FU Chief Complaint: test results HPI Comments Details: This patient presents to the office today for follow up of his COPD, and to discuss test results. He is ambulatory and currently on room air. He has not recently been seen in the ED or urgent care for any respiratory illness. He has not required any antibiotics or prednisone for any breathing problems. He is compliant with use of Trelegy 1 puff daily. He admits that a few months ago he took a little time off because he was not able to afford the inhaler. He states it was costing him $168 per month. He has been on it for the past several weeks. He does report rinsing his mouth out after each use. He denies any medication side effect such as sore throat or thrush. He rarely uses the albuterol rescue inhaler. He continues to smoke cigarettes. He is currently smoking about 1/2 - 3/4 packs/day. He has shortness of breath that is worse with exertion. He is having wheezes. He has chest congestion and a cough that is productive of thick clear sputum. He has not had any fever, chills or body aches. He does have sinus pressure and headache. Test results personally viewed the patient: Low-dose CT lung screening completed on January 12, 2025. No suspicious nodules are seen. Noted is hyperinflation and emphysematous changes. Intake Vital Signs 01/31/24 07:06 01/30/25 08:18 Height 5 ft 5 in 5 ft 5 in Weight: 181 lb BMI 30.1 BP 111/71 Blood Pressure Location Lt brachial Position Sitting Respiration 18 Pulse 58 L Pulse Source Monitor Temp 97.4 F L Temperature Source Temporal Artery Pulse Oximetry (%) 93 Oxygen Delivery Method room air Intake Visit Reasons: 1 Y FU Chief Complaint: 6 M FU Hoister Required: No Accompanied by: Self Allergies grass pollen Allergy (Verified 01/30/25 15:25) Sinus congestion Medications ???Medication ???Instructions ???Recorded ???Confirmed ???Type atenolol 50 mg tablet 50 mg PO DAILY 01/24/19 01/30/25 H istory cholecalciferol (vitamin D3) 50 4,000 unit PO DAILY 02/22/1901/30 History mcg (2,000 unit) tablet aspirin 81 mg tablet,delayed 81 mg PO DAILY #30 tabs 06/01/19 0 01/30/25 Rx release (Adult Aspirin Regimen) omeprazole 20 mg capsule,delayed 20 mg PO DAILY #90 caps 07/04/19 0 01/30/25 Rx release rosuvastatin 5 mg tablet 10 mg PO DAILY 12/09/21 01/30/25 H istory albuterol sulfate 90 mcg/actuation 2 puff inhalation Q4H PRN 01/30/25 Rx aerosol inhaler shortness of stalin (more content not included)... Normal [facility] Low Dose CT Lung Screeningon 01-14-[address] Lung Screening [facility] [place], [place] [id number] Low Dose CT Lung Screening MR#: [id number] Acct: [id number] Name: DOMINGA DOMINIQUE Rep #: [id number] : 1960 M 64 From: Prabhu Hernandez MD PCP: MARCO Gusman Status: REG CLI Study: Low Dose CT Lung Screening Date of Exam: 01/14 Exam# [id number] Ordering Dr: Omkar Carrion DO PROCEDURE: LOW DOSE CT LUNG SCREENING 01/14/2025 REASON FOR EXAM: H/O TOBACCO DEPENDENCY TECHNIQUE: Low Dose CT Lung screening without contrast. Coronal and Sagittal reformats were generated. One or more dose reduction techniques were used (e.g., Automated exposure control, adjustment of the mA and/or kV according to patient size, use of iterative reconstruction technique). REFERENCE LINK: [facility] Lung-RADS RADIATION DOSE SUMMARY: CTDlvol: 1.59 mGy DLP: 58.98 mGycm COMPARISON: None. FINDINGS: Note that evaluation of the vasculature, horacio, and soft tissues is limited in the absence of IV contrast. Heart/pericardium:Trace aortic annular calcification. No appreciable calcific coronary atherosclerosis. Aorta: Trace to mild calcific atherosclerosis. Pulmonary arteries: Normal in caliber. Lymph nodes: Subcentimeter mediastinal and axillary nodes.. Lungs/pleura: Emphysema. Mild atelectasis/scarring. 3 mm RIGHT lower lobe nodule (series 2, image 199). 4 mm LEFT lower lobe nodule (image 184). Airways: Unremarkable. Chest wall: Unremarkable. Upper abdomen: Suboptimally evaluated, grossly unremarkable. Musculoskeletal: Mild scoliosis. Lower cervical predominant spondylosis. Degenerative changes of the RIGHT shoulder.. CT/Low Dose CT Lung Screening IMPRESSION: 1. Lung-RADS category: 2 (benign appearance or behavior, <1% chance of malignancy); continue annual screening with LDCT. 2. Other clinically significant or potentially significant non-lung cancer findings: None. 3. Additional description as above. Recommendations per [employer]. Lung CT Screening Reporting and Data System (Lung-RADS) v. 2022 Reading Location: [id number] CC: RUG REPAIRER-C Dio Lemus; Dr. Omkar Brown, DO Fur Trimming Machine Operator: Signed Normal [facility] CBC W/Diff, Automatedon 11- Absolute Lymph 1.25 X10 3/uL Normal 0.83-4.51 [facility] Comment on above: Performed By: #### L 501.9910, L506.1000, L500.4100, L500.4050, L100.0100 #### [facility] [address] [place], [address] Absolute Neut 4.3 X10 3/uL Normal 2.0-7.7 [facility] Comment on above: Performed By: #### L 501.9910, L506.1000, L500.4100, L500.4050, L100.0100 #### [facility] [address] [place], [address] Basophils/100 WBC (Bld) 0.8 % Normal 0-1 [facility] Comment on above: Performed By: #### L 501.9910, L506.1000, L500.4100, L500.4050, L100.0100 #### [facility] [address] [place], [address] Eosinophils/100 WBC (Bld) 1.1 % Normal 0-5 [facility] Comment on above: Performed By: #### L 501.9910, L506.1000, L500.4100, L500.4050, L100.0100 #### [facility] [address] [place], [address] Erythrocyte distribution width (RBC) [Ratio] 12.8 % Normal 11.6-14.6 [facility] Comment on above: Performed By: #### L 501.9910, L506.1000, L500.4100, L500.4050, L100.0100 #### [facility] [address] [place], [address] Hematocrit (Bld) [Volume fraction] 45.3 % Normal 40-54 [facility] Comment on above: Performed By: #### L 501.9910, L506.1000, L500.4100, L500.4050, L100.0100 #### [facility] [address] [place], [address] Hemoglobin (Bld) [Mass/Vol] 14.8 g/dL Normal 13.0-16.5 [facility] Comment on above: Performed By: #### L 501.9910, L506.1000, L500.4100, L500.4050, L100.0100 #### [facility] [address] [place], [address] IG% 0.300 Normal 0.0-0.9 [facility] Comment on above: Result Comment: IG% - Immature Granulocytes (promyelocytes, myelocytes and metamyelocytes) > 1% indicates that a LEFT SHIFT is Present. Performed By: #### L 501.9910, L506.1000, L500.4100, L500.4050, L100.0100 #### [facility] [address] [place], [address] Lymphocytes/100 WBC (Bld) 19.9 % Normal 19-41 [facility] Comment on above: Performed By: #### L 501.9910, L506.1000, L500.4100, L500.4050, L100.0100 #### [facility] [address] [place], [address] MCH (RBC) [Entitic mass] 30.0 pg Normal 27.0-32.0 [facility] Comment on above: Performed By: #### L 501.9910, L506.1000, L500.4100, L500.4050, L100.0100 #### [facility] [address] [place], [address] MCHC (RBC) [Mass/Vol] 32.7 g/dL Normal 32-36 [facility] Comment on above: Performed By: #### L 501.9910, L506.1000, L500.4100, L500.4050, L100.0100 #### [facility] [address] [place], [address] MCV (RBC) [Entitic vol] 91.9 fL Normal 80-94 [facility] Comment on above: Performed By: #### L 501.9910, L506.1000, L500.4100, L500.4050, L100.0100 #### [facility] [address] [place], [address] Monocytes/100 WBC (Bld) 9.4 % Normal 0-10 [facility] Comment on above: Performed By: #### L 501.9910, L506.1000, L500.4100, L500.4050, L100.0100 #### [facility] [address] [place], [address] Neutrophils/100 WBC (Bld) 68.5 % Normal 47-70 [facility] Comment on above: Performed By: #### L 501.9910, L506.1000, L500.4100, L500.4050, L100.0100 #### [facility] [address] [place], [address] Nucleated RBC (Bld) [#/Vol] 0 10*3/uL Normal 0-5 [facility] Comment on above: Performed By: #### L 501.9910, L506.1000, L500.4100, L500.4050, L100.0100 #### [facility] [address] [place], [address] Platelet mean volume (Bld) [Entitic vol] 10.0 fL Normal 6.2-12.0 [facility] Comment on above: Performed By: #### L 501.9910, L506.1000, L500.4100, L500.4050, L100.0100 #### [facility] [address] [place], [address] Platelets (Bld) [#/Vol] 312 10*3/uL Normal 150-450 [facility] Comment on above: Performed By: #### L 501.9910, L506.1000, L500.4100, L500.4050, L100.0100 #### [facility] [address] [place], [address] RBC (Bld) [#/Vol] 4.93 10*6/uL Normal 4.6-6.2 [facility] Comment on above: Performed By: #### L 501.9910, L506.1000, L500.4100, L500.4050, L100.0100 #### [facility] [address] [place], [address] RDW SD 42.9 fl Normal 35.1-43.9 [facility] Comment on above: Performed By: #### L 501.9910, L506.1000, L500.4100, L500.4050, L100.0100 #### [facility] [address] [place], [address] WBC (Bld) [#/Vol] 6.3 10*3/uL Normal 4.4-11.0 [facility] Comment on above: Performed By: #### L 501.9910, L506.1000, L500.4100, L500.4050, L100.0100 #### [facility] [address] [place], [address] Comprehensive Metabolic Prof [facility] 08-22-2024 Albumin [Mass/Vol] 3.6 g/dL Normal 3.2-5.0 [facility] Comment on above: Performed By: #### L 501.9910, L506.1000, L500.4100, L500.4050, L100.0100 #### [facility] [address] [place], [address] Albumin/Globulin [Mass ratio] 0.9 {ratio} Normal 0.9-2.4 [facility] Comment on above: Performed By: #### L 501.9910, L506.1000, L500.4100, L500.4050, L100.0100 #### [facility] [address] [place], [address] ALK P 79 U/L Normal 45-117 [facility] Comment on above: Performed By: #### L 501.9910, L506.1000, L500.4100, L500.4050, L100.0100 #### [facility] [address] [place], [address] ALT [Catalytic activity/Vol] 29 U/L Normal 16-61 [facility] Comment on above: Performed By: #### L 501.9910, L506.1000, L500.4100, L500.4050, L100.0100 #### [facility] [address] [place], [address] AST [Catalytic activity/Vol] 19 U/L Normal 15-37 [facility] Comment on above: Performed By: #### L 501.9910, L506.1000, L500.4100, L500.4050, L100.0100 #### [facility] [address] [place], [address] Bilirubin [Mass/Vol] 0.40 mg/dL Normal 0.20-1.00 [facility] Comment on above: Result Comment: For patients on eltrombopag therapy, use of Dimension Jewett TBIL is not recommended. Performed By: #### L 501.9910, L506.1000, L500.4100, L500.4050, L100.0100 #### [facility] [address] [place], [address] BUN/CRE 12.1 RATIO Normal 10-20 [facility] Comment on above: Performed By: #### L 501.9910, L506.1000, L500.4100, L500.4050, L100.0100 #### [facility] [address] [place], [address] CA,Total 9.3 mg/dL Normal 8.5-10.1 [facility] Comment on above: Performed By: #### L 501.9910, L506.1000, L500.4100, L500.4050, L100.0100 #### [facility] [address] [place], [address] Chloride [Moles/Vol] 105 mmol/L Normal 98-107 [facility] Comment on above: Performed By: #### L 501.9910, L506.1000, L500.4100, L500.4050, L100.0100 #### [facility] [address] [place], [address] CO2 [Moles/Vol] 28.0 mmol/L Normal 21.0-32.0 [facility] Comment on above: Performed By: #### L 501.9910, L506.1000, L500.4100, L500.4050, L100.0100 #### [facility] [address] [place], [address] Creatinine [Mass/Vol] 0.82 mg/dL Normal 0.70-1.30 [facility] Comment on above: Result Comment: The validity of the calculated GFR GFRAA in patients over 70 years has not been determined. Clinical correlation is essential. Performed By: #### L 501.9910, L506.1000, L500.4100, L500.4050, L100.0100 #### [facility] [address] [place], [address] EST GFR - AA 120 mL/min Normal >60 [facility] Comment on above: Result Comment: Afri can [employer] GFR Calc Performed By: #### L 501.9910, L506.1000, L500.4100, L500.4050, L100.0100 #### [facility] [address] [place], [address] GAP 5 Normal 5-15 [facility] Comment on above: Performed By: #### L 501.9910, L506.1000, L500.4100, L500.4050, L100.0100 #### [facility] [address] [place], [address] GFR/1.73 sq M.predicted among non-blacks MDRD (S/P/Bld) [Vol rate/Area] 99 mL/min/{1.73_m2} Normal >60 [facility] Comment on above: Result Comment: Non- GFR Calc Performed By: #### L 501.9910, L506.1000, L500.4100, L500.4050, L100.0100 #### [facility] [address] [place], [address] Globulin (S) [Mass/Vol] 4.1 g/dL Normal 2.2-4.2 [facility] Comment on above: Performed By: #### L 501.9910, L506.1000, L500.4100, L500.4050, L100.0100 #### [facility] [address] [place], [address] Glucose [Mass/Vol] 93 mg/dL Normal 74-106 [facility] Comment on above: Performed By: #### L 501.9910, L506.1000, L500.4100, L500.4050, L100.0100 #### [facility] [address] [place], [address] Potassium [Moles/Vol] 4.4 mmol/L Normal 3.5-5.1 [facility] Comment on above: Performed By: #### L 501.9910, L506.1000, L500.4100, L500.4050, L100.0100 #### [facility] [address] [place], [address] Sodium [Moles/Vol] 138 mmol/L Normal 136-145 [facility] Comment on above: Performed By: #### L 501.9910, L506.1000, L500.4100, L500.4050, L100.0100 #### [facility] [address] [place], [address] T PROT 7.7 g/dL Normal 6.4-8.2 [facility] Comment on above: Performed By: #### L 501.9910, L506.1000, L500.4100, L500.4050, L100.0100 #### [facility] [address] [place], [address] Urea nitrogen [Mass/Vol] 10 mg/dL Normal 7-18 [facility] Comment on above: Performed By: #### L 501.9910, L506.1000, L500.4100, L500.4050, L100.0100 #### [facility] [address] [place], [address] Lipid Profileon 08-22-2024 Cholesterol [Mass/Vol] 218 mg/dL High 200 [facility] Comment on above: Result Comment: <200 mg/dL Desirable 200-240 mg/dL Borderline >240 mg/dL High Risk Performed By: #### L 501.9910, L506.1000, L500.4100, L500.4050, L100.0100 #### [facility] [address] [place], [address] Cholesterol in HDL [Mass/Vol] 63 mg/dL Normal [facility] Comment on above: Result Comment: The drugs N-Acetylcysteine and Metamizole may falsely depress this assay. Reference Range HDL <40 mg/dL Low HDL Cholesterol HDL >or= 60 mg/dL High HDL Cholesterol Performed By: #### L 501.9910, L506.1000, L500.4100, L500.4050, L100.0100 #### [facility] [address] [place], [address] Cholesterol in LDL [Mass/Vol] 123 mg/dL Normal 0-130 [facility] Comment on above: Performed By: #### L 501.9910, L506.1000, L500.4100, L500.4050, L100.0100 #### [facility] [address] [place], [address] Cholesterol in VLDL [Mass/Vol] 32 mg/dL Normal 5-40 [facility] Comment on above: Performed By: #### L 501.9910, L506.1000, L500.4100, L500.4050, L100.0100 #### [facility] [address] [place], [address] Triglyceride [Mass/Vol] 158 mg/dL Normal [facility] Comment on above: Result Comment: The drugs N-Acetylcysteine and Metamizole may falsely depress this assay. Serum Triglycerides Reference Interval Normal <150 mg/dL Borderline high 150 - 199 mg/dL High 200 - 499 mg/dL Very High > or = 500 mg/dL Performed By: #### L 501.9910, L506.1000, L500.4100, L500.4050, L100.0100 #### [facility] [address] [place], [address] PSA,Total - Annual Screenon 08-22-2024 PSA,TOT SCREEN 0.93 ng/mL Normal 0.00-4.00 [facility] Comment on above: Result Comment: This test was performed using the TPSA assay method for the [employer] chemistry system. Values obtained with different assay methods cannot be used interchangably. When changing PSA assays in the course of monitoring a patient, additional sequential testing should be carried out to confirm baseline values. Performed By: #### L 501.9910, L506.1000, L500.4100, L500.4050, L100.0100 #### [facility] [address] [place], [address] Vitamin D,25 Hydroxyon 08-22 Vitamin D 25-OH 32.0 ng/mL Normal [facility] Comment on above: Result Comment: Jaclyn min D 25(OH) Status Range Deficiency <20 ng/mL (50nmol/L) Insufficiency 20 - 30 ng/mL (50 - 75 nmol/L) Sufficiency 30 - 100 ng/mL (75 - 250 nmol/L) Toxicity >100 ng/mL (>250 nmol/L) Performed By: #### L 501.9910, L506.1000, L500.4100, L500.4050, L100.0100 #### [facility] [address] [place], [place], [id number] Culture, urineOrdered By: Ra niraj Lemus on 02-03-2024 Bacteria identified Cx Nom (U) Culture exhibits no growth. [facility] SPINE, CERVICAL MIN 4 VIEWSo n 11-07-2019 SPINE, CERVICAL MIN 4 VIEWS Patient Name: DOMINGA DOMINIQUE STUDY: SPINE, CERVICAL MIN 4 VIEWS; 11/07/2019 11:39 am INDICATION: M54.2 M54.5. COMPARISON: None. ACCESSION NUMBER(S): [id number] ORDERING CLINICIAN: SARATH SOLIS TECHNIQUE: 6 views of the cervical spine including AP, lateral, lateral swimmer's view, open-mouth odontoid view and bilateral oblique views were obtained. FINDINGS: There is no evidence of acute fracture identified. The vertebral bodies are well aligned without evidence of subluxation. No prevertebral soft tissue swelling is present. Moderate to severe disc space narrowing and bulky marginal osteophyte formation is seen at the C4-5 level. Moderate to severe disc space narrowing and small to moderate marginal osteophytes are present at the C3-4, C5-6 and C6-7 levels. Moderate facet degenerative changes are seen throughout the cervical spine. No gross osseous neural foraminal narrowing is seen bilaterally. IMPRESSION: 1. No evidence of acute fracture. 2. Degenerative changes, as above. Electronically signed by: JOSAFAT SILVA MD [facility] SPINE, LUMBOSACRAL MIN 4 VIE WSon 11-07-2019 SPINE, LUMBOSACRAL MIN 4 VIEWS Patient Name: DOMINGA DOMINIQUE STUDY: SPINE, LUMBOSACRAL MIN 4 VIEWS; 11/07/2019 11:39 am INDICATION: M54.2 M54.5. COMPARISON: None. ACCESSION NUMBER(S): [id number] ORDERING CLINICIAN: SARATH SOLIS FINDINGS: Five views of the lumbar spine including AP, lateral, lateral cone-down and bilateral oblique views were obtained. There is no acute fracture identified. The vertebral bodies are well aligned without evidence of subluxation. Dgbk-gu-linethfz disc space narrowing and marginal osteophyte formation is seen at the L2-3 level. Mild disc space narrowing and small marginal osteophytes are present at the L1-2 and L3-4 levels. Moderate facet degenerative changes are seen throughout the lumbar spine. There is no evidence of pars interarticularis defect. IMPRESSION: 1. No evidence of acute fracture. 2. Degenerative changes throughout the lumbar spine, as described above. Electronically signed by: JOSAFAT SILVA MD [facility] XR Chest 2 Viewson 8 XR Chest 2 Views Exam Date/Time:08/01/2018 09:01 EDTReason for Exam:coughReportSTUDY:X R Chest 2 Views; 08/01/2018 9:01 amINDICATION:cough.COMP ARISON:None. 549ORDERING CLINICIAN:Sarath SolisFINDINGS:PA and lateral views of the chest were obtained. No focal infiltrate, pleural effusion or pneumothorax is identified. The cardiac silhouette is within normal limits for size. Minimal discogenic degenerative changes are seen throughout the thoracic spine.IMPRESSION:No focal infiltrate or pneumothorax. FINAL REPORT Dictated: 08/01/2018 12:17 pm Josafat Silva MD CSigned (Electronic Signature): 08/01/2018 12:17 pmSigned by: Josafat Silva MD Technologist: [facility] XR Hand 3+ Views Lefton 07-11 XR Hand 3+ Views Left Exam Date/Time:08/01/2018 08:51 EDTReason for Exam:injury of left handReportSTUDY:XR Hand 3+ Views Left; 08/01/2018 8:51 amINDICATION:injury of left hand.COMPARISON:None. CESSION NUMBER(S):[id number] 547ORDERING CLINICIAN:Sarath Jacobo:Three views of the left hand including AP, oblique and lateral projections were obtained.FINDINGS:There is a transverse fracture identified through the distal metaphysis of the 5th metacarpal. There is mild anterior displacement and moderate anterior angulation at the fracture site. No additional fractures are identified. The joint spaces are well preserved throughout without significant degenerative changes.IMPRESSION:1. Right 5th metacarpal fracture, as above. FINAL REPORT Dictated: 08/01/2018 12:17 pm Josafat Silva MD CSigned (Electronic Signature): 08/01/2018 12:17 pmSigned by: Josafat Silva MD Technologist: [facility] Vital Signs Date Time Vital Sign Value Performing Clinician Jazmin whitehead 01-31-2024 07:06-0400 Body height 165.[address] Sarath Solis Work Phone: [facility] 01-31-2024 07:06-0400 Body mass index (BMI) [Ratio] 30.1 kg/m2 Dr. Sarath Solis Work Phone: [facility] 01-31-2024 07:06-0400 Body temperature 98.4 [degF] Dr. Sarath Solis Work Phone: [facility] 01-31-2024 07:06-0400 Body weight 82.[address] Sarath Solis Work Phone: [facility] 01-31-2024 07:06-0400 Diastolic blood pressure 79 mm[Hg] Dr. Sarath Solis Work Phone: [facility] 01-31-2024 07:06-0400 Heart rate 74 /min Dr. Sarath Solis Work Phone: [facility] 01-31-2024 07:06-0400 Respiratory rate 20 /min Dr. Sarath Solis Work Phone: [facility] 01-31-2024 07:06-0400 SaO2% (BldA) [Mass fraction] 94 % Dr. Sarath Solis Work Phone: [facility] 01-31-2024 07:06-0400 Systolic blood pressure 124 mm[Hg] Dr. Sarath Solis Work Phone: [facility] Encounters Encounter Date Encounter Type Care Provider Facility Start: 07-18-2025 ambulatory María Elena Israel RUG REPAIRER Fac ility:[facility] Start: 07-16-2025 End: 07-16-2025 ambulatory María Elena Israel RUG REPAIRER Facility:[facility] Start: 07-10-2025 End: 07-10-2025 ambulatory María Elena Israel RUG REPAIRER Facility:[facility] Start: 06-21-2025 End: 06-21-2025 ambulatory Dio Lemus RUG REPAIRER-C Work Phone: [facility] Start: 06-21-2025 End: 06-21-2025 Patient encounter procedure Dio Lemus RUG REPAIRER-C [facility] [place] Work Phone: Start: 06-21-2025 End: 06-21-2025 ambulatory Dio Lemus Facility:[facility] Start: 01-30-2025 End: 01-30-2025 ambulatory María Elena Israel RUG REPAIRER Facility:[facility] Start: 01-14-2025 End: 01-14-2025 ambulatory Dio Lemus RUG REPAIRER-C Work Phone: [facility] Work Phone: Start: 01-14-2025 End: 01-14-[address] Omkar Carrion DO -Cat Scan, [facility] Work Phone: Start: 01-14-2025 End: 01-14-2025 ambulatory Omkar Carrion Facility:[facility] Start: 08-22-2024 End: 08-22-2024 ambulatory [facility] Facility:[facility] Start: 02-03-2024 End: 02-03-[address] Sarath Solsi Work Phone: [facility] Work Phone: Start: 02-03-2024 End: 02-03-[address] Sarath Solis Work Phone: [facility], [facility] Work Phone: Start: 02-03-2024 End: 02-03-[address] Sarath Solis Work Phone: [facility] Work Phone: Start: 02-03-2024 End: 02-03-[address] Sarath Solis Work Phone: [facility], Kalyan Cai [facility] Start: 01-31-2024 End: 01-31-[address] Sarath Solis Work Phone: [facility] Work Phone: Start: 01-16-2024 End: 01-16-2024 ambulatory [facility] Facility:[facility] Start: 01-16-2024 End: 01-16-2024 Patient encounter procedure Raquel Valenzuela OD Work Phone: Optometry Comment on above: Hyperopia, bilateral (Primary Dx); Regular astigmatism, bilateral; Presbyopia Start: 01-13-2024 End: 01-13-2024 ambulatory [facility] Work Phone: Start: 01-13-2024 End: 01-13-2024 Patient encounter procedure [facility]-Cat Scan, [facility] Work Phone: Start: 01-12-2024 End: 01-12-2024 ambulatory [facility] Work Phone: Start: 01-12-2024 End: 01-12-2024 Patient encounter procedure [facility]-Radiology, [facility] Work Phone: Start: 12-17-2022 End: 12-17-2022 ambulatory [facility] Work Phone: Start: 12-17-2022 End: 12-17-2022 Patient encounter procedure [facility]-Cat Scan, [facility] Start: 10-13-2022 End: 10-13-2022 Patient encounter procedure Navi Valenzuela OD Work Phone: Optometry Comment on above: Hyperopia, bilateral (Primary Dx); Regular astigmatism, bilateral; Presbyopia; Choroidal nevus of right eye; Retinal hole of right eye; Senile nuclear cataract, bilateral Start: 08-01-2018 End: 08-02-2018 Patient encounter procedure Sarath Solis Facility:[facility] Start: 08-01-2018 Patient encounter procedure Facility:[id number] Procedures Date Procedure Procedure Detail Performing Clinician Start: 06-21-2025 Radiologic exam ches t 2 views Dio Lemus RUG REPAIRER-C Work Phone: Start: 01-14-2025 CT of chest Dio gibbons RUG REPAIRER-C Work Phone: Start: 02-03-2024 Ultrasound of scrotu m with Doppler and color flow imaging Dr. Sarath Solis Work Phone: Start: 02-03-[address] Sarath Solis Work Phone: Start: 01-13-2024 CT of chest Start: 01-12-2024 Radiography of esophagus Start: 12-17-2022 CT of chest Start: 02-16-2019 Colonoscopy Navi rowland II, OD Work Phone: Plan of Treatment Date Care Activity Detail Author Start: 03-29-2029 Urine microalbumin profile DTaP,Tdap,Td Vaccine (2 - Td or Tdap) [facility] Start: 10-10-2023 Advance Directive Discussion Advance Directive Discussion [facility] Start: 10-10-2023 Behavioral Health Screening Behavioral Health Screening [facility] Start: 10-10-2022 DEPRESSION ASSESSMENT DEPRESSION ASSESSMENT [facility] Start: 11-19-2021 COVID-19 VACCINE (4 - Booster for Moderna series) COVID-19 VACCINE (4 - Booster for Moderna series) [facility] Start: 02-17-2020 Colonoscopy COLONOSCOPY [facility] Start: 02-17-2020 COLORECTAL CANCER SCREENING COLORECTAL CANCER SCREENING [facility] Start: 02-17-2020 Screening for malignant neoplasm of colon [facility] Start: 2013 PROSTATE CANCER SCREENING DISCUSSION PROSTATE CANCER SCREENING DISCUSSION [facility] Start: 2013 Prostate specific antigen measurement Prostate Cancer Screening Discussion [facility] Start: 2008 SHINGRIX VACCINE (1 of 2) SHINGRIX VACCINE (1 of 2) [facility] Start: 2003 COLOGUARD (FIT-DNA) COLOGUARD (FIT-DNA) [facility] Start: [address] COLONOGRAPHY [facility] Start: 2003 DIABETES SCREEN DIABETES SCREEN [facility] Start: 2003 Diabetes Screening Diabetes Screening [facility] Start: 2003 FECAL OCCULT BLOOD FECAL OCCULT BLOOD [facility] Start: 2003 Screening for malignant neoplasm of colon [facility] Start: 2003 SIGMOIDOSCOPY SIGMOIDOSCOPY [facility] Start: 1993 Lipid panel Lipid Screening [facility] Start: 1993 LIPID SCREEN LIPID SCREEN [facility] Start: 1977 Urine microalbumin profile DTAP,TDAP,TD (1 - Tdap) [facility] Start: 1976 HEPATITIS C SCREENING HEPATITIS C SCREENING [facility] Start: 1976 Hepatitis C screening Hepatitis C Screening [facility] Start: 1976 HIV SCREENING HIV SCREENING [facility] Start: 1976 HIV screening HIV Screening [facility] Start: 1960 Abdominal aortic aneurysm screening Abdominal Aortic Aneurysm Screening [facility] CT Chest [facility] Payers Date Payer Category Payer Self-pay [id number] 2021 Unknown [employer] [id number] 02/07/2021-Present [id number] [place] [address] Indemnity [id number] 02-07-2021 Unknown [id number] 10-10-2017 Private Health Insurance 10-10-2014 Unknown ANTHEM EXCHANGE PLAN [id number] 1960 Unknown [id number] 1960 Unknown [id number] Medicaid [id number] Private Health Insurance [id number] Unknown ANTHEM EXCHG HMO OHMCRWPO [id number] Unknown [id number] Unknown [id number] Unknown [id number] Unknown [id number] Unknown [id number] Unknown [id number] Unknown [id number] Social History Date Type Detail Facility Start: 12-08-2017 End: 01-16-2024 Tobacco smoking status NHIS Smokes tobacco daily [facility] History of tobacco use Cigarette Smoker C [facility] Start: 12-08-2017 End: 01-16-2024 Cigarettes smoked current (pack per day) - Reported 1.5 [facility] Start: 12-08-2017 End: 04-08-2024 Tobacco use and exposure Smokeless tobacco non-user [facility] Start: 10-13-2022 End: 01-16-2024 Alcohol intake Current drinker of alcohol (finding) [facility] Start: 1960 Sex Assigned At Not on file C [facility] Start: 07-21-2022 End: 01-31-2024 Tobacco smoking status SDIS Unknown if ever smoked [facility] Start: 06-10-2020 Non-smoker [facility] Start: 1960 Sex Assigned At Male [facility] Start: 06-01-2021 End: 01-16-2024 Tobacco use panel [facility] National Score (1-10 0), lower number is lower risk 87 [facility] Start: 01-31-2024 [facility] Start: 01-17-2025 Sex Male (finding) [facility] Start: 01-30-2025 [facility] day smoker [facility] Clinical Notes 10-13-2022 to 06-21-2025 Patient InstructionsRaquel Valenzuela, OD - 01/16/2024 10:34 AM EDTPatient Kole Valenzuela II, OD - 10/13/2022 11:03 AM EST Note Date & Type Note Facility 06-21-2025 Radiology Diagnostic study note [facility] [address] [place], [place] [address] Chest PA and Lateral MR#: [id number] Acct: [id number] Name: DOMINGA DOMINIQUE Rep #: [id number] : [id number] M [id number] From: Rafiq Koroma MD PCP: MARCO Gusman Status: REG CLI Study:Chest PA and Lateral Date of Exam: 06/21/25 Exam# [id number] Ordering Dr: Ra niraj Lemus PROCEDURE: CHEST PA AND LATERAL 06/21/2025 REASON FOR EXAM: SOB, COUGH, COPD TECHNIQUE: Procedure Code: RADCXR Modality: DX Procedure: CHEST PA AND LATERAL COMPARISON: Set Up Operator from the chest CT of 01/14/2025. RAD/Chest PA and Lateral IMPRESSION: Lungs are moderately severely hyperinflated with increased interstitial markings, most consistent with a significant degree of chronic lung disease. No focal infiltrate is clearly appreciated. No pleural effusion or pneumothorax is seen. The cardiomediastinal silhouette is stable, without evidence of cardiomegaly. Amildly calcified aorta is seen. [id number] thoracic spine degenerative changes are seen. No acute osseous change is evident. Reading Location: [place] [address] CC: MARCO Lemus ~ Fur Trimming Machine Operator: Signed [facility] 01-15-2025 Radiology Diagnostic study note [facility] [address] [place], [place] [address] Low Dose CT Lung Screening MR#: [id number] Acct: [id number] Name: DOMINGA DOMINIQUE Rep #: [id number] : [id number] M [id number] From: Colleen Hernandez MD PCP: MARCO Gusman Status: REG CLI Study:Low Dose CT Lung Screening Date of Exam : 01/14/25 Exam# [id number] Ordering Dr: Wade DO PROCEDURE: LOW DOSE CT LUNG SCREENING 01/14/2025 REASON FOR EXAM: H/O TOBACCO DEPENDENCY TECHNIQUE: Low Dose CT Lung screening without contrast. Coronal and Sagittal reformats weregenerated. One or more dose reduction techniques were used (e.g., Automated exposure control, adjustment of the mA and/or kV according to patient size, use of iterative reconstruction technique). REFERENCE LINK: [employer] Lung-RADS RADIATION DOSE SUMMARY: CTDlvol: 1.59 mGy DLP: 58.98 mGycm COMPARISON: None. FINDINGS: Note that evaluation of the vasculature, horacio, and soft tissues is limited in the absence of IV contrast. Heart/pericardium:Trace aortic annular calcification. No appreciable calcific coronary atherosclerosis. Aorta: Trace to mild calcific atherosclerosis. Pulmonary arteries: Normal in caliber. Lymph nodes: Subcentimeter mediastinal and axillary nodes.. Lungs/pleura: Emphysema. Mild atelectasis/scarring. 3 mm RIGHT lower lobe nodule (series 2, image 199). 4 mm LEFT lower lobe nodule (image 184). Airways: Unremarkable. Chest wall: Unremarkable. Upper abdomen: Suboptimally evaluated, grossly unremarkable. Musculoskeletal: Mild scoliosis. Lower cervical predominant spondylosis. Degenerative changes of the RIGHT shoulder.. CT/Low Dose CT Lung Screening IMPRESSION: 1. Lung-RADS category: 2 (benign appearance or behavior, <1% chance of malignancy); continue annual screening with LDCT. 2. Other clinically significant or potentially significant non-lung cancer findings: None. 3. Additional description as above. Recommendations per [employer]. Lung CT Screening Reporting and Data System (Lung-RADS) v. 2022 Reading Location: [id number] CC: MARCO Lemus; Dr. Omkar Carrion, DO ~ Fur Trimming Machine Operator: Signed [facility] 01-16-2024 Note HNO ID: [id number] Author: RAQUEL VALENZUELA OD Service: ? Author Type: BARREL ENDSHAKE ADJUSTER Type: Progress Notes Filed: 01/16/2024 10:37 Note Text: ASSESSMENT/PLAN: 1. Hyperopia, bilateral - ICD9: 367.0, ICD10: H52.03 (primary diagnosis) 2. Regular astigmatism, bilateral - ICD9: 367.21, ICD10: H52.223 3. Presbyopia - ICD9: 367.4, ICD10: H52.4 Discussed the option of driving glasses since he in not interested in bifocals. Continue to monitor his ocular health. Recommended yearly exams. Raquel Valenzuela OD [facility] 01-16-2024 Instructions Raquel Valenzuela OD - 01/16/2024 10:36 AM EDT ASSESSMENT/PLAN: 1. Hyperopia, bilateral - ICD9: 367.0, ICD10: H52.03 (primary diagnosis) 2. Regular astigmatism, bilateral - ICD9: 367.21, ICD10: H52.223 3. Presbyopia - ICD9: 367.4, ICD10: H52.4 Discussed the option of driving glasses since he in not interested in bifocals. Continue to monitor his ocular health. Recommended yearly exams. documented in this encounter [facility] 01-16-2024 History of Present illness Narrative ASSESSMENT/PLAN: 1. Hyperopia, bilateral - ICD9: 367.0, ICD10: H52.03 (primary diagnosis) 2. Regular astigmatism, bilateral - ICD9: 367.21, ICD10: H52.223 3. Presbyopia - ICD9: 367.4, ICD10: H52.4 Discussed the option of driving glasses since he in not interested in bifocals. Continue to monitor his ocular health. Recommended yearly exams. Raquel Valenzuela, OD documented in this encounter [facility] 10-13-2022 Instructions Navi Valenzuela II, OD - 10/13/2022 11:05 AM EST Assessment and Plan H52.03 Hyperopia, bilateral (primary encounter diagnosis) H52.223 Regular astigmatism, bilateral H52.4 Presbyopia Comment: Demonstrated improved vision possible at distance with glasses especially right eye. Patient happy with OTC readers for now. 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 Monitor. 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 Stable with flat pigmented edges. Recheck yearly. H25.13 Senile nuclear cataract, bilateral Comment: Trace cataract in both eyes. Well tolerated at this time. Monitor as instructed. I have confirmed and edited as necessary the relevant ophthalmic history, ROS, and the neuro exam findings as obtained by others. I have seen and examined Dominga Dominique. I have discussed the case and the management of this patient's care with the Resident/Fellow, if applicable. I also have reviewed and agree with the assessment and plan as stated above and agree with all of its relevant components. Navi Valenzuela II, OD documented in this encounter [facility] 01-04-2023 History of Present illness Narrative Assessment and Plan H52.03 Hyperopia, bilateral (primary encounter diagnosis) H52.223 Regular astigmatism, bilateral H52.4 Presbyopia Comment: Demonstrated improved vision possible at distance with glasses especially right eye. Patient happy with OTC readers for now. 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 Monitor. 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 Stable with flat pigmented edges. Recheck yearly. H25.13 Senile nuclear cataract, bilateral Comment: Trace cataract in both eyes. Well tolerated at this time. Monitor as instructed. I have confirmed and edited as necessary the relevant ophthalmic history, ROS, and the neuro exam findings as obtained by others. I have seen and examined Dominga Dominique. I have discussed the case and the management of this patient's care with the Resident/Fellow, if applicable. I also have reviewed and agree with the assessment and plan as stated above and agree with all of its relevant components. 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 Diagnosis Onset Date Resolution Status GREGG (obstructive sleep apnea) acute COPD (chronic obstructive pulmonary disease) chronic Nicotine dependence, cigarettes, in remission chronic [facility] Work Phone: Reason for referral (narrative)No reason for referral information availableWCleveland Clinic Lutheran Hospital Work Phone: Summary Purpose Family History No Family History Records Found Relationship Condition Age at Onset Recorded Date/T zack sister Malignant neoplasm of breast Unknown mother Hyperlipidemia Unknown Diabetes mellitus Unknown Advance Directives No Advanced Directives Records Found Advance Directive Response Recorded Date/ Time Advance Directives No June 8:11am Living Will No June 10 10:45am Power of Director Traffic And Planning No June 10, 2020 10:45am Advance Directive Response Recorded Date/ Time Living Will No June 10 10:45am Do you have a Healthcare Power of Director Traffic And Planning? No June 10, 2020 10:45am Advance Directives No June 8:11am Advance Directive Response Recorded Date/ Time Advance Directives No June 8:11am Chief Complaint and Reason for Visit Chief Complaint NICOTINE DEPENDENCE Chief Complaint DYSPHAGIA SMOKER Chief Complaint DYSPHAGIA SMOKER 6 M FU TESTICULAR PAIN Reason for Visit GERGG (obstructive sle ep apnea) COPD (chronic obstructive pulmonary disease) Nicotine dependence, cigarettes, in remission Chief Complaint Admit Date HX OF NICOTINE DEPENDENCE January 14 1:46pm Additional Source Comments (unrecognized sect ion and content) No Status Records FoundNo Status Records FoundNo Status Records FoundNo Status Records FoundNo Status Records Found INFORMATION SOURCE (unrecogn ized section and content) DATE CREATED AUTHOR 09/17/2018 [facility] DATE CREATED AUTHOR AUTHOR'S ORGANIZ ATION 09/18/2018 [facility] DATE CREATED AUTHOR AUTHOR'S ORGANIZ ATION 11/10/2019 [facility] DATE CREATED AUTHOR AUTHOR'S ORGANIZ ATION 01/16/2024 [facility] DATE CREATED AUTHOR AUTHOR'S ORGANIZ ATION 08/06/2025 [facility] Source Comments (unrecognize d section and content) In the event this informatio n is protected by the Federal Confidentiality of Alcohol and Drug Abuse Patient Records regulations: The Federal rules restrict any use of the information to criminally investigate or prosecute any alcohol or drug abuse patient.[facility] the event this information is protected by the Federal Confidentiality of Alcohol and Drug Abuse Patient Records regulations: The Federal rules restrict any use of the information to criminally investigate or prosecute any alcohol or drug abuse patient.[facility] Reason for Visit (unrecogniz ed section and content) Reason Comments Yearly Exam Care Teams (unrecognized sec tion and content) Business Administration Instructor Relationship Specialty Start Date End Date Sarath Solis PCP - General 10/26/05 Team Status: Active Member Role Status Dates Dr. Sarath Solis MD Family Provider Active Dr. Sarath Solis MD Primary Care Provider Active Team Status: Inactive Member Role Status Dates Dr. Sarath Solis MD Primary Care Provider Active María Elena Israel RUG REPAIRER, RUG REPAIRER-C Attending Provider Active Business Administration Instructor Relationship Specialty Start Date End Date Dio Lemus NP [address] [place] [address] PCP - General Family Medicine 12/26/23 Team Status: Active Member Role Status Dates Dr. Sarath Solis MD Family Provider Active Dio Lemus NP-[facility] Primary Care Provider Active Team Status: Active Member Role Status Dates María Elena Israel RUG REPAIRER, RUG REPAIRER-C Attending Provider, Referrin g Provider Active Dio Lemus NP-C Primary Care Provider Active Team Status: Inactive Member Role Status Dates Dio Lemus NP-[facility] Primary Care Provider Active Dr. Tyson Connell MD Attending Provider, Referring P rovityree Active Team Status: Inactive Member Role Status Dates María Elena Israel RUG REPAIRER, RUG REPAIRER-C Attending Provider, Referrin g Provider Active Dio Lemus NP-C Primary Care Provider Active Team Status: Inactive Member Role Status Dates Dr. Sarath Solis MD Referring Provider Active Dr. Omkar Carrion DO Attending Provider Active Dio Lemus RUG REPAIRER-C Primary Care Provider Active Team Status: Inactive Member Role Status Dates Dio Lemus NP-C Primary Care Provider, Attending P rovider Active Team Status: Active Member Role Status Dates Dio Kady , RUG REPAIRER-C Primary Care Provider, Attending Leeroy newman Active Team Status: Active Member Role Status Dates Dio Lemus , RUG REPAIRER-C Primary Care Provider Active Team Status: Inactive Member Role Status Dates Dio Lemus , RUG REPAIRER-C Primary Care Provider Active Start: January 14, 2025 End: January 14, 2025 Dr. Omkar Carrion , DO Attending Provider Active S tart: January 14, 2025 End: January 14, 2025 Dr. Omkar Carrion , DO Referring Provider Active S tart: January 14, 2025 End: January 14, 2025 Team Status: Active Member Role/Relationship Status Dates Dio Lemus , RUG REPAIRER-C Primary care physician Active Team Status: Inactive Member Role/Relationship Status Dates Dio Lemus , RUG REPAIRER-C Primary care physician Active Start: June 21, 2025 End: June 21, 2025 Dio Lemus , RUG REPAIRER-C Attending physician Active S tart: June 21, 2025 End: June 21, 2025 Dio Lemus , RUG REPAIRER-C Referring Provider Active St art: June 21, 2025 End: June 21, 2025 Goals (unrecognized section and content) Goals may be documented in a n alternate sectionGoals may be documented in an alternate sectionGoals may be documented in an alternate sectionGoals may be documented in an alternate sectionGoals may be documented in an alternate sectionGoals may be documented in an alternate sectionGoals may be documented in an alternate section Inactive Administered Medications - up to 3 most recent administrations Administered Medications (un recognized section and content) Medication Order MAR Action Action Date Dose Rate Site tropicamide 0.5 % 1 Drop (MYDRIACYL) 1 Drop, BOTH EYES, ONCE, 1 dose, On Tue01/16/24 at 1030, FOR THE EYE Given 01/16/2024 10:30 AM EDT 1 Drop FOR RECORDS PERTAINING TO PATIENTS WHO ARE OR HAVE BEEN ENROLLED IN A CHEMICAL DEPENDENCY/SUBSTANCEABUSE PROGRAM, SOME INFORMATION MAY BE OMITTED. This clinical summary was aggregated from multiple sources. Caution should be exercised in using it in the provision of clinical care. This summary normalizes information from multiple sources, and as a consequence, information in this document may materially change the coding, format and clinical context of patient data. In addition, data may be omitted in some cases. CLINICAL DECISIONS SHOULD BE BASED ON THE PRIMARY CLINICAL RECORDS. [facility] Document [employer] [facility]. provides no warranty or guarantee of the accuracy or completeness of information in this document.
[2025-08-26 14:11] LABS: AST(SGOT) 22 U/L (<=37); Alanine Aminotransfer ALT/SGPT 20 U/L (<=46); Albumin, Serum 4.2 g/dL (3.4-4.8); Alkaline Phosphatase 62 U/L (40-129); Anion Gap 14 (5-15); BUN 13 mg/dL (4-19); BUN/Creat Ratio 16.6 RATIO (10-20); Calcium,Total 9.7 mg/dL (7.6-11.0); Carbon Dioxide 25.5 mmol/L (21.0-32.0); Chloride 99 mmol/L (98-108); Cholesterol 245 mg/dL (<=200); Ferritin 271 ng/mL (37-417); Globulin 3.0 g/dL (2.2-4.2); Glucose 89 mg/dL (70-99); Low Density Lipoprotein Calc. 122 mg/dL; PSA,Total - Annual Screen 1.47 ng/mL (0.02-4.00); Potassium 4.1 mmol/L (3.3-5.1); Pro- Brain NATRIURETIC PEPTIDE 95 pg/mL (<=900); Triglycerides 321 mg/dL; Very Low Density Lipoprotein 64 mg/dL (5-40); Vitamin B12 1029 pg/mL (180-914); Vitamin D,25 Hydroxy 89.0 ng/mL (30-100); cholesterol:hdl ratio screen 3.62
[2025-08-26 14:41] LABS: Iron 135 ug/dL (65-175)
[2025-08-27 08:09] LABS: CRP, High Sensitivity 5.69 mg/L (0.00-3.00)
== END | disposition home or self-care (01) ==
LOC: BFHLAB 10:44
PROVIDERS: PCP Nurse Practitioner Family; Visit Provider Nurse Practitioner Family
DX: E55.9 Vitamin D deficiency, unspecified (principal); E78.5 Hyperlipidemia, unspecified; I10 Essential (primary) hypertension; Z12.5 Encounter for screening for malignant neoplasm of prostate; R07.9 Chest pain, unspecified; R53.83 Other fatigue; E53.8 Deficiency of other specified B group vitamins; E61.1 Iron deficiency; E03.9 Hypothyroidism, unspecified
CPT/HCPCS: 36415; 80053; 80061; 82306; 82607; 82728; 83540; 83880; 84153; 84439; 84443; 85025; 86141; G0103